=== PATIENT | male | born 1955 | race Caucasian/White ===

== ENCOUNTER 2017-08-28 11:35 | Inpatient (IN) ==
[2017-08-28] MEDS ORDERED: NS 1000 ML 2,000 ML IV ONE (14:08)
[2017-08-28] MEDS ORDERED: PHARMACY CONSULT - TPN XX SCH (14:08)
[2017-08-28 14:31] LABS: BASOPHILS # (AUTO) 0.3 X10^3/uL (0.0-0.1); BASOPHILS % (AUTO) 1.7 % (0.2-1.0); EOSINOPHILS # (AUTO) 0.8 x10^3/uL (0.0-0.2); EOSINOPHILS % (AUTO) 5.2 % (0.9-2.9); HEMATOCRIT 33.6 % (42.0-54.0); HEMOGLOBIN 11.4 g/dL (13.5-18.0); LYMPHOCYTES # (AUTO) 1.9 X10^3/uL (1.3-2.9); LYMPHOCYTES % (AUTO) 11.6 % (21.0-51.0); MEAN CORPUSCULAR HEMOGLOBIN 32.8 pg (27.0-34.0); MEAN CORPUSCULAR VOLUME 96.5 fL (80.0-100.0); MEAN PLATELET VOLUME 8.8 fL (7.4-11.0); MONOCYTES # (AUTO) 1.5 x10^3/uL (0.3-0.8); MONOCYTES % (AUTO) 8.8 % (0.0-13.0); NEUTROPHILS % (AUTO) 72.7 % (42.0-75.0); PLATELET COUNT 351 X10^3/uL (150.0-450.0); RED BLOOD COUNT 3.48 X10^6/uL (4.7-6.0); RED CELL DISTRIBUTION WIDTH 13.2 % (11.6-16.5); WHITE BLOOD COUNT 16.5 X10^3/uL (3.6-10.0)
[2017-08-28 14:41] LABS: ALANINE AMINOTRANSFERASE 48 Units/L (12-78); ALBUMIN 2.9 g/dL (3.4-5.0); ALKALINE PHOSPHATASE 53 Units/L (46-116); ASPARTATE AMINO TRANSFERASE 33 Units/L (15-37); BLOOD UREA NITROGEN 29 mg/dL (7-18); CALCIUM 10.7 mg/dL (8.5-10.1); CARBON DIOXIDE 31.6 mmol/L (21-32); CHLORIDE 100 mmol/L (98-107); COR CA(FOR HYPOALB) 11.6 mg/dL (8.5-10.1); COR NA(FOR HYPERGLY) 139 mmol/L (136-145); CREATININE 0.97 mg/dL (0.70-1.30); SODIUM 139 mmol/L (136-145); TOTAL PROTEIN 7.5 g/dL (6.4-8.2); eGFR NON BLACK RACES > 60 (>60)
[2017-08-28] MEDS: ALBUMIN HUMAN 25%- 100 ML 100 ML IV SCH (15:10)
[2017-08-28] MEDS: NS 1000 ML 1,000 ML IV SCH (15:13)
[2017-08-28 15:33] LABS: BILIRUBIN,URINE NEGATIVE (NEGATIVE); BLOOD/HEMOGLOBIN,URINE 1+ (NEGATIVE); GLUCOSE, URINE NEGATIVE (NEGATIVE); KETONES,URINE NEGATIVE (NEGATIVE); LEUKOCYTE ESTERASE ,URINE 1+ (NEGATIVE); NITRITES,URINE NEGATIVE (NEGATIVE); PROTEIN,URINE 2+ (NEGATIVE); UROBILINOGEN,URINE NORMAL (NORMAL)
[2017-08-28 15:34] LABS: APPEARANCE,URINE HAZY (CLEAR); COLOR,URINE YELLOW (YELLOW)
--- NOTE | 2017-08-28 15:39 | RAD ---
History: Peg tube placement Study: KUB after instillation of 30 mL Gastrografin through the PEG tube Findings: There is opacification of stomach and duodenum and proximal jejunum without extravasation. The PEG tube is in the body of the stomach. Impression: Appropriate position of PEG tube Reported By:
[2017-08-28 15:45] LABS: BACTERIA,URINE TRACE /HPF (NEGATIVE); MUCUS,URINE FEW /HPF (NEGATIVE); SQUAMOUS EPITHELIAL CELL,UR RARE /HPF (NEGATIVE)
[2017-08-28] MEDS ORDERED: HYDROGEN PEROXIDE 3% ONE (15:48)
[2017-08-28] MEDS: MORPHINE SULFATE INJ 2 MG INJ IVP PRN ×2 (15:50→20:21)
[2017-08-28] MEDS: CLINIMIX 4.25 %/10 % 1,000 ML with MVI INJ (ADULT) 10 ML, TRACE ELEMENTS INJ 10 ML, DRU... IV SCH ×3 (16:43)
[2017-08-28] MEDS: ATIVAN INJ 2 MG VIAL IVP SCH ×2 (17:38→20:14)
[2017-08-28] MEDS: ROCEPHIN VIAL 1 GRAM 1 G in NS 100 ML IV + SPIKE MINIBAG* 100 ML IV SCH (18:19)
[2017-08-29] MEDS: ATIVAN INJ 2 MG VIAL IVP SCH ×3 (00:23→07:34)
[2017-08-29] MEDS: MORPHINE SULFATE INJ 2 MG INJ IVP PRN ×7 (02:11→22:37)
[2017-08-29] MEDS: CLINIMIX 4.25 %/10 % 1,000 ML with MVI INJ (ADULT) 10 ML, TRACE ELEMENTS INJ 10 ML, DRU... IV SCH ×9 (05:26→18:10)
[2017-08-29 06:56] LABS: BASOPHILS # (AUTO) 0.1 X10^3/uL (0.0-0.1); BASOPHILS % (AUTO) 0.8 % (0.2-1.0); EOSINOPHILS # (AUTO) 0.8 x10^3/uL (0.0-0.2); EOSINOPHILS % (AUTO) 5.6 % (0.9-2.9); HEMATOCRIT 31.6 % (42.0-54.0); HEMOGLOBIN 10.7 g/dL (13.5-18.0); LYMPHOCYTES # (AUTO) 1.7 X10^3/uL (1.3-2.9); MEAN CORPUSCULAR HEMOGLOBIN 32.8 pg (27.0-34.0); MEAN CORPUSCULAR HGB CONC 33.8 g/dL (33.0-35.0); MEAN CORPUSCULAR VOLUME 97.1 fL (80.0-100.0); MEAN PLATELET VOLUME 10.4 fL (7.4-11.0); MONOCYTES # (AUTO) 1.6 x10^3/uL (0.3-0.8); MONOCYTES % (AUTO) 11.6 % (0.0-13.0); NEUTROPHILS # (AUTO) 9.7 x10^3/uL (2.2-4.8); PLATELET COUNT 286 X10^3/uL (150.0-450.0); RED BLOOD COUNT 3.25 X10^6/uL (4.7-6.0); RED CELL DISTRIBUTION WIDTH 12.9 % (11.6-16.5); WHITE BLOOD COUNT 13.9 X10^3/uL (3.6-10.0)
[2017-08-29 07:11] LABS: PREALBUMIN 16.1 mg/dL (18-35.7)
[2017-08-29 08:24] LABS: ALANINE AMINOTRANSFERASE 59 Units/L (12-78); ALBUMIN 3.1 g/dL (3.4-5.0); ALKALINE PHOSPHATASE 53 Units/L (46-116); ASPARTATE AMINO TRANSFERASE 49 Units/L (15-37); BLOOD UREA NITROGEN 21 mg/dL (7-18); CARBON DIOXIDE 25.1 mmol/L (21-32); CHLORIDE 102 mmol/L (98-107); COR CA(FOR HYPOALB) 10.7 mg/dL (8.5-10.1); COR NA(FOR HYPERGLY) 139 mmol/L (136-145); CREATININE 0.71 mg/dL (0.70-1.30); MAGNESIUM 1.6 mg/dL (1.7-2.9); PHOSPHORUS 3.6 mg/dL (2.6-4.7); SODIUM 139 mmol/L (136-145); TOTAL PROTEIN 6.7 g/dL (6.4-8.2); TRIGLYCERIDES 106 mg/dL (0-150); eGFR NON BLACK RACES > 60 (>60)
[2017-08-29] MEDS: ROCEPHIN VIAL 1 GRAM 1 G in NS 100 ML IV + SPIKE MINIBAG* 100 ML IV SCH (09:51)
[2017-08-29] MEDS: ALBUMIN HUMAN 25%- 100 ML 100 ML IV SCH (09:55)
[2017-08-29] MEDS ORDERED: PHARMACY CONSULT - VANCOMYCIN XX SCH (10:00)
[2017-08-29] MEDS: ZOSYN VIAL 3.375 GRAMS 3.375 G in NS 100 ML IV + SPIKE MINIBAG* 100 ML IV SCH ×3 (11:11→21:24)
[2017-08-29] MEDS: ATIVAN INJ 2 MG VIAL IVP PRN ×5 (11:12→22:37)
[2017-08-29] MEDS: NS 1000 ML 1,000 ML IV SCH (14:57)
[2017-08-29] MEDS: VANCOMYCIN HCL 1 GM VIAL 1 G in D5W 250 ML IV 250 ML IV SCH (20:02)
--- NOTE | 2017-08-29 23:00 | DR.UPDATE ---
H&P Update History and Physical Update: WAS SEEN IN THE OFFICE TODAY. A H&P WAS COMPLETED PRIOR TO ADMISSION. PATIENT HAS BEEN SEEN AND EXAMINED WITH NO CHANGES NOTED TO H&P. Changes noted: NO Yes with the following:
[2017-08-30] MEDS: MORPHINE SULFATE INJ 2 MG INJ IVP PRN ×7 (01:00→21:55)
[2017-08-30] MEDS: ATIVAN INJ 2 MG VIAL IVP PRN ×7 (01:14→21:56)
[2017-08-30 05:19] LABS: BASOPHILS # (AUTO) 0.1 X10^3/uL (0.0-0.1); EOSINOPHILS # (AUTO) 0.7 x10^3/uL (0.0-0.2); EOSINOPHILS % (AUTO) 4.6 % (0.9-2.9); HEMATOCRIT 31.9 % (42.0-54.0); HEMOGLOBIN 10.8 g/dL (13.5-18.0); LYMPHOCYTES % (AUTO) 13.2 % (21.0-51.0); MEAN CORPUSCULAR HGB CONC 34.1 g/dL (33.0-35.0); MEAN CORPUSCULAR VOLUME 96.9 fL (80.0-100.0); MEAN PLATELET VOLUME 9.4 fL (7.4-11.0); NEUTROPHILS # (AUTO) 10.3 x10^3/uL (2.2-4.8); NEUTROPHILS % (AUTO) 68.2 % (42.0-75.0); PLATELET COUNT 331 X10^3/uL (150.0-450.0); RED BLOOD COUNT 3.29 X10^6/uL (4.7-6.0); RED CELL DISTRIBUTION WIDTH 12.7 % (11.6-16.5); WHITE BLOOD COUNT 15.1 X10^3/uL (3.6-10.0)
[2017-08-30] MEDS: ZOSYN VIAL 3.375 GRAMS 3.375 G in NS 100 ML IV + SPIKE MINIBAG* 100 ML IV SCH ×3 (05:23→21:55)
[2017-08-30 05:29] LABS: ALANINE AMINOTRANSFERASE 57 Units/L (12-78); ALBUMIN 3.2 g/dL (3.4-5.0); ALKALINE PHOSPHATASE 50 Units/L (46-116); ASPARTATE AMINO TRANSFERASE 29 Units/L (15-37); BLOOD UREA NITROGEN 13 mg/dL (7-18); CALCIUM 10.2 mg/dL (8.5-10.1); CARBON DIOXIDE 25.5 mmol/L (21-32); CHLORIDE 102 mmol/L (98-107); COR CA(FOR HYPOALB) 10.8 mg/dL (8.5-10.1); CREATININE 0.68 mg/dL (0.70-1.30); MAGNESIUM 1.5 mg/dL (1.7-2.9); PHOSPHORUS 3.6 mg/dL (2.6-4.7); SODIUM 138 mmol/L (136-145); TOTAL PROTEIN 7.3 g/dL (6.4-8.2); TRIGLYCERIDES 103 mg/dL (0-150); eGFR NON BLACK RACES > 60 (>60)
[2017-08-30 06:51] LABS: PREALBUMIN 17.3 mg/dL (18-35.7)
[2017-08-30] MEDS: ALBUMIN HUMAN 25%- 100 ML 100 ML IV SCH (09:36)
[2017-08-30] MEDS: VANCOMYCIN HCL 1 GM VIAL 1 G in D5W 250 ML IV 250 ML IV SCH ×2 (09:41→21:54)
[2017-08-30 12:09] VITALS: BMI 16.0
[2017-08-30] MEDS ORDERED: DRUG FILTER EXTENSION SET ONE (12:48)
[2017-08-30] MEDS: CLINIMIX 4.25 %/10 % 1,000 ML with MVI INJ (ADULT) 10 ML, TRACE ELEMENTS INJ 10 ML, DRU... IV SCH ×3 (13:06)
--- NOTE | 2017-08-30 13:20 | PCM.PROG ---
Progress Note - Progress Note for Day of Date of Exam: 08/29/17 - Subjective Subjective: WAS ADMITTED FOR DEHYDRATION, GENERALIZED WEAKNESS, AND DRAINAGE FROM G-TUBE AND TRACH. HE WAS RECENTLY DIAGNOSED WITH THROAT CANCER LAST MONTH. TRACH WAS PLACED ON 08/05/2017. G-TUBE WAS PLACED ON 08/10/2017. TODAY , HE IS ALERT AND ORIENTED, LYING IN BED ON MORNING ROUNDS. HE CONTINUES WITH COMPLAINTS OF GENERALIZED WEAKNESS, NAUSEA, AND PAIN TO AREA OF G-TUBE. STAFF REPORTS THAT PATIENT HAS BEEN ANXIOUS AND HAS GOTTEN UPSET OFTEN ABOUT HIS DISEASE PROCESS. ON EXAMINATION, HEART IS REGULAR IN RATE AND RHYTHM. BILATERAL LUNGS ARE NOTED WITH DIMINISHED LUNG SOUNDS THROUGHOUT. ABDOMEN IS FLAT, SOFT, AND NOTED WITH MODERATE TENDERNESS TO LEFT SIDE ABDOMEN AROUND G-TUBE. THERE IS DRAINAGE NOTED TO SITE OF G-TUBE WELL FROM ET TUBE. HIS VITALS THIS MORNING WERE 99.8-68-18-97%-106/53. LABS WERE OBTAINED. ABNORMAL LAB VALUES INCLUDE THE FOLLOWING: WBC 13.9, RBC 3.25, HGB 10.7, HCT 31.6, BUN 21, GLUCOSE 115, MAGNESIUM 1.6, AST 49, ALBUMIN 3.1. WOUND CULTURES ARE PENDING. TODAY, WE WILL START FORTAZ IV AND ZOSYN IV. WE WILL ALSO CONTINUE WITH MORPHINE FOR PAIN AND ATIVAN FOR AGITATION. OTHERWISE, WE PLAN TO FOLLOW UP WITH AM LABS AND CONTINUE TO MONITOR PATIENT. - Past Medical Family Social History Past Med/Fam/Surg Hx: No changes since H&P Allergies: Allergies No Known Drug Allergies Allergy (Verified 08/28/17 14:36) - Review of Systems ROS: No change since H&P - Vital Signs and I&O's Vital Signs: Temperature 97.5 F Pulse Rate [Left Brachial] 66 Pulse Rate [Apical] 62 Pulse Rate 64 Respiratory Rate 20 Blood Pressure [Left Arm] 113/52 Blood Pressure [Right Arm] 124/66 O2 Sat by Pulse Oximetry 97 Intake and Output: Intake & Output 08/28/17 08/29/17 08/30/17 08/31/17 11:59 11:59 11:59 11:59 Intake Total 1905 / 1905 2380 / 2380 Balance 190 / 1905 2380 / 2380 - Physical Exam Oriented: Normal Eyes: Normal Ear: Normal Nose: Normal Throat: Other (TRACH WITH DRAINAGE AROUND SITE ) Respiratory: Generalized, Diminished Cardiovascular: Normal. negative: S3, S4, Murmur : Normal Auscultation: Bowel Sounds: Decreased Palpation: Normal Tenderness: Diffuse, Moderate, Guarding. negative: Rebound, Rigidity Skin: Red (LEFT SIDE ABDOMEN AROUND G TUBE SITE ), Tender, Hot Musculoskeletal: Normal Psychiatric: Normal Mood Description: Calm Affect: Normal Speech Pattern: Unclear, Trach(not ventilated) - Laboratory and Diagnostics Result Diagrams: 08/30/17 04:50 08/30/17 04:50 Labs: 08/28/17 15:19 Trachea Gram Stain - Final 08/28/17 15:19 Trachea Wound Culture - Preliminary 08/28/17 15:19 G Tube Gram Stain - Final 08/28/17 15:19 G Tube Wound Culture - Preliminary Laboratory WBC 15.1 X10^3/uL (3.6-10.0) H 08/30/17 04:50 RBC 3.29 X10^6/uL (4.7-6.0) L 08/30/17 04:50 Hgb 10.8 g/dL (13.5-18.0) L 08/30/17 04:50 Hct 31.9 % (42.0-54.0) L 08/30/17 04:50 MCV 96.9 fL (80.0-100.0) 08/30/17 04:50 MCH 33.0 pg (27.0-34.0) 08/30/17 04:50 MCHC 34.1 g/dL (33.0-35.0) 08/30/17 04:50 RDW 12.7 % (11.6-16.5) 08/30/17 04:50 Plt Count 331 X10^3/uL (150.0-450.0) 08/30/17 04:50 MPV 9.4 fL (7.4-11.0) 08/30/17 04:50 Neut % (Auto) 68.2 % (42.0-75.0) 08/30/17 04:50 Lymph % (Auto) 13.2 % (21.0-51.0) L 08/30/17 04:50 [place] % (Auto) 13.0 % (0.0-13.0) 08/30/17 04:50 Eos % (Auto) 4.6 % (0.9-2.9) H 08/30/17 04:50 Baso % (Auto) 1.0 % (0.2-1.0) 08/30/17 04:50 Neut # (Auto) 10.3 x10^3/uL (2.2-4.8) H 08/30/17 04:50 Lymph # (Auto) 2.0 X10^3/uL (1.3-2.9) 08/30/17 04:50 [place] # (Auto) 2.0 x10^3/uL (0.3-0.8) H 08/30/17 04:50 Eos # (Auto) 0.7 x10^3/uL (0.0-0.2) H 08/30/17 04:50 Baso # (Auto) 0.1 X10^3/uL (0.0-0.1) 08/30/17 04:50 Absolute Nucleated RBC 0.0 /100WBC 08/30/17 04:50 Sodium 138 mmol/L (136-145) 08/30/17 04:50 Corrected Sodium TNP 08/30/17 04:50 Potassium 3.8 mmol/L (3.5-5.1) 08/30/17 04:50 Chloride 102 mmol/L (98-107) 08/30/17 04:50 Carbon Dioxide 25.5 mmol/L (21-32) 08/30/17 04:50 BUN 13 mg/dL (7-18) 08/30/17 04:50 Creatinine 0.68 mg/dL (0.70-1.30) L 08/30/17 04:50 Est GFR (MDRD) Af Amer > 60 (>60) 08/30/17 04:50 Est GFR (MDRD) Non-Af > 60 (>60) 08/30/17 04:50 Glucose 106 mg/dL (65-99) H 08/30/17 04:50 Calcium 10.2 mg/dL (8.5-10.1) H 08/30/17 04:50 Corrected Calcium 10.8 mg/dL (8.5-10.1) H 08/30/17 04:50 Phosphorus 3.6 mg/dL (2.6-4.7) 08/30/17 04:50 Magnesium 1.5 mg/dL (1.7-2.9) L 08/30/17 04:50 Total Bilirubin 0.50 mg/dL (0.2-1.0) 08/30/17 04:50 AST 29 Units/L (15-37) 08/30/17 04:50 ALT 57 Units/L (12-78) 08/30/17 04:50 Alkaline Phosphatase 50 Units/L (46-116) 08/30/17 04:50 Total Protein 7.3 g/dL (6.4-8.2) 08/30/17 04:50 Albumin 3.2 g/dL (3.4-5.0) L 08/30/17 04:50 Globulin 4.1 g/dL (2.5-4.5) 08/30/17 04:50 Albumin/Globulin Ratio 0.8 Ratio (1.1-2.1) L 08/30/17 04:50 Prealbumin 17.3 mg/dL (18-35.7) L 08/30/17 04:50 Triglycerides 103 mg/dL (0-150) 08/30/17 04:50 Specimen Type Clean catch urine 08/28/17 15:07 Urine Color Yellow (YELLOW) 08/28/17 15:07 Urine Appearance Hazy (CLEAR) 08/28/17 15:07 Urine pH 8.0 (5.0 - 8.0) 08/28/17 15:07 Ur Specific [place] 1.010 (1.000-1.030) 08/28/17 15:07 Urine Protein 2+ (NEGATIVE) 08/28/17 15:07 Urine Glucose (UA) Negative (NEGATIVE) 08/28/17 15:07 Urine Ketones Negative (NEGATIVE) 08/28/17 15:07 Urine Occult Blood 1+ (NEGATIVE) 08/28/17 15:07 Urine Nitrite Negative (NEGATIVE) 08/28/17 15:07 Urine Bilirubin Negative (NEGATIVE) 08/28/17 15:07 Urine Urobilinogen Normal (NORMAL) 08/28/17 15:07 Ur Leukocyte Esterase 1+ (NEGATIVE) 08/28/17 15:07 Urine RBC 3-5 /HPF (NONE SEEN) 08/28/17 15:07 Urine WBC 3-5 /HPF (NONE SEEN) 08/28/17 15:07 Ur Squamous Epith Cells Rare /HPF (NEGATIVE) 08/28/17 15:07 Urine Bacteria Trace /HPF (NEGATIVE) 08/28/17 15:07 Urine Mucus Few /HPF (NEGATIVE) 08/28/17 15:07 Ur Culture Indicated? No/not indicated 08/28/17 15:07 - Plan (1) Dehydration Status: Acute Plan: NORMAL SALINE AT KVO, TPN, ALBUMIN 25% IV DAILY, CONTINUE TO MONITOR (2) Skin infection at gastrostomy tube site Status: Acute Plan: WOUND CULTURES, IV ANTIBIOTICS, CONTINUE TO MONITOR (3) Tracheostomy infection Status: Acute Plan: WOUND CULTURES, IV ANTIBIOTICS, CONTINUE TO MONITOR (4) Abdominal pain Status: Acute Qualifiers: Abdominal location: generalized Qualified Code(s): R10.84 - Generalized abdominal pain Plan: MORPHINE 2-4MG IV Q2-4H PRN, CONTINUE TO MONITOR
[2017-08-30] MEDS: NS 1000 ML 1,000 ML IV SCH (14:12)
[2017-08-30] MEDS ORDERED: HYDROGEN PEROXIDE 3% ONE (15:12)
--- NOTE | 2017-08-30 16:26 | PCM.PROG ---
Progress Note - Progress Note for Day of Date of Exam: 08/30/17 - Subjective Subjective: WAS ADMITTED FOR DEHYDRATION, GENERALIZED WEAKNESS, AND DRAINAGE FROM G-TUBE AND TRACH. HE WAS RECENTLY DIAGNOSED WITH THROAT CANCER LAST MONTH. TRACH WAS PLACED ON 08/05/2017. G-TUBE WAS PLACED ON 08/10/2017. TODAY , HE IS ALERT AND ORIENTED, LYING IN BED ON MORNING ROUNDS. HE CONTINUES WITH COMPLAINTS OF GENERALIZED WEAKNESS AND PAIN TO AREA OF G-TUBE. ON EXAMINATION, HEART IS REGULAR IN RATE AND RHYTHM. BILATERAL LUNGS ARE NOTED WITH DIMINISHED LUNG SOUNDS THROUGHOUT. ABDOMEN IS FLAT, SOFT, AND NOTED WITH MODERATE TENDERNESS TO LEFT SIDE ABDOMEN AROUND G-TUBE. DRESSINGS TO TRACHEOSTOMY AND G TUBE ARE DRY AND INTACT. HIS VITALS THIS MORNING WERE 97.5-66-20-97%-113/52. LABS WERE OBTAINED. ABNORMAL LAB VALUES INCLUDE THE FOLLOWING: WBC 15.1, RBC 3.29, HGB 10.8, HCT 31.9, CREATININE 0.68, GLUCOSE 106, CALCIUM 8.2, MAGNESIUM 1.5, ALBUMIN 3.2. WOUND CULTURES ARE PENDING. HE CONTINUES ON TPN, ALBUMIN, AND IV ANTIBIOTICS. WE WILL CONTINUE WITH CURRENT PLAN OF CARE TODAY AND REPLACE HIS MAGNESIUM PER THE PROTOCOL. OTHERWISE, WE PLAN TO FOLLOW UP WITH AM LABS AND CONTINUE TO MONITOR PATIENT. - Past Medical Family Social History Past Med/Fam/Surg Hx: No changes since H&P Allergies: Allergies No Known Drug Allergies Allergy (Verified 08/28/17 14:36) - Review of Systems ROS: No change since H&P - Vital Signs and I&O's Vital Signs: Temperature 97.5 F Pulse Rate [Left Brachial] 66 Pulse Rate [Apical] 62 Pulse Rate 64 Respiratory Rate 20 Blood Pressure [Left Arm] 113/52 Blood Pressure [Right Arm] 124/66 O2 Sat by Pulse Oximetry 97 Intake and Output: Intake & Output 08/28/17 08/29/17 08/30/17 08/31/17 11:59 11:59 11:59 11:59 Intake Total 1905 / 1905 2380 / 2380 820 / 820 Output Total 150 / 150 Balance 1905 / 1905 2380 / 2380 670 / 670 - Physical Exam Oriented: Normal Eyes: Normal Ear: Normal Nose: Normal Throat: Other (TRACH WITH DRAINAGE AROUND SITE ) Respiratory: Generalized, Diminished Cardiovascular: Normal. negative: S3, S4, Murmur : Normal Auscultation: Bowel Sounds: Decreased Tenderness: Diffuse, Moderate, Guarding. negative: Rebound, Rigidity Skin: Red (LEFT SIDE ABDOMEN AROUND G TUBE SITE ), Tender, Hot Musculoskeletal: Normal Psychiatric: Normal Mood Description: Calm Affect: Normal Speech Pattern: Unclear, Trach(not ventilated) - Laboratory and Diagnostics Result Diagrams: 08/30/17 04:50 08/30/17 04:50 Labs: 08/28/17 15:19 Trachea Gram Stain - Final 08/28/17 15:19 Trachea Wound Culture - Preliminary 08/28/17 15:19 G Tube Gram Stain - Final 08/28/17 15:19 G Tube Wound Culture - Preliminary Laboratory WBC 15.1 X10^3/uL (3.6-10.0) H 08/30/17 04:50 RBC 3.29 X10^6/uL (4.7-6.0) L 08/30/17 04:50 Hgb 10.8 g/dL (13.5-18.0) L 08/30/17 04:50 Hct 31.9 % (42.0-54.0) L 08/30/17 04:50 MCV 96.9 fL (80.0-100.0) 08/30/17 04:50 MCH 33.0 pg (27.0-34.0) 08/30/17 04:50 MCHC 34.1 g/dL (33.0-35.0) 08/30/17 04:50 RDW 12.7 % (11.6-16.5) 08/30/17 04:50 Plt Count 331 X10^3/uL (150.0-450.0) 08/30/17 04:50 MPV 9.4 fL (7.4-11.0) 08/30/17 04:50 Neut % (Auto) 68.2 % (42.0-75.0) 08/30/17 04:50 Lymph % (Auto) 13.2 % (21.0-51.0) L 08/30/17 04:50 [place] % (Auto) 13.0 % (0.0-13.0) 08/30/17 04:50 Eos % (Auto) 4.6 % (0.9-2.9) H 08/30/17 04:50 Baso % (Auto) 1.0 % (0.2-1.0) 08/30/17 04:50 Neut # (Auto) 10.3 x10^3/uL (2.2-4.8) H 08/30/17 04:50 Lymph # (Auto) 2.0 X10^3/uL (1.3-2.9) 08/30/17 04:50 [place] # (Auto) 2.0 x10^3/uL (0.3-0.8) H 08/30/17 04:50 Eos # (Auto) 0.7 x10^3/uL (0.0-0.2) H 08/30/17 04:50 Baso # (Auto) 0.1 X10^3/uL (0.0-0.1) 08/30/17 04:50 Absolute Nucleated RBC 0.0 /100WBC 08/30/17 04:50 Sodium 138 mmol/L (136-145) 08/30/17 04:50 Corrected Sodium TNP 08/30/17 04:50 Potassium 3.8 mmol/L (3.5-5.1) 08/30/17 04:50 Chloride 102 mmol/L (98-107) 08/30/17 04:50 Carbon Dioxide 25.5 mmol/L (21-32) 08/30/17 04:50 BUN 13 mg/dL (7-18) 08/30/17 04:50 Creatinine 0.68 mg/dL (0.70-1.30) L 08/30/17 04:50 Est GFR (MDRD) Af Amer > 60 (>60) 08/30/17 04:50 Est GFR (MDRD) Non-Af > 60 (>60) 08/30/17 04:50 Glucose 106 mg/dL (65-99) H 08/30/17 04:50 Calcium 10.2 mg/dL (8.5-10.1) H 08/30/17 04:50 Corrected Calcium 10.8 mg/dL (8.5-10.1) H 08/30/17 04:50 Phosphorus 3.6 mg/dL (2.6-4.7) 08/30/17 04:50 Magnesium 1.5 mg/dL (1.7-2.9) L 08/30/17 04:50 Total Bilirubin 0.50 mg/dL (0.2-1.0) 08/30/17 04:50 AST 29 Units/L (15-37) 08/30/17 04:50 ALT 57 Units/L (12-78) 08/30/17 04:50 Alkaline Phosphatase 50 Units/L (46-116) 08/30/17 04:50 Total Protein 7.3 g/dL (6.4-8.2) 08/30/17 04:50 Albumin 3.2 g/dL (3.4-5.0) L 08/30/17 04:50 Globulin 4.1 g/dL (2.5-4.5) 08/30/17 04:50 Albumin/Globulin Ratio 0.8 Ratio (1.1-2.1) L 08/30/17 04:50 Prealbumin 17.3 mg/dL (18-35.7) L 08/30/17 04:50 Triglycerides 103 mg/dL (0-150) 08/30/17 04:50 Specimen Type Clean catch urine 08/28/17 15:07 Urine Color Yellow (YELLOW) 08/28/17 15:07 Urine Appearance Hazy (CLEAR) 08/28/17 15:07 Urine pH 8.0 (5.0 - 8.0) 08/28/17 15:07 Ur Specific [place] 1.010 (1.000-1.030) 08/28/17 15:07 Urine Protein 2+ (NEGATIVE) 08/28/17 15:07 Urine Glucose (UA) Negative (NEGATIVE) 08/28/17 15:07 Urine Ketones Negative (NEGATIVE) 08/28/17 15:07 Urine Occult Blood 1+ (NEGATIVE) 08/28/17 15:07 Urine Nitrite Negative (NEGATIVE) 08/28/17 15:07 Urine Bilirubin Negative (NEGATIVE) 08/28/17 15:07 Urine Urobilinogen Normal (NORMAL) 08/28/17 15:07 Ur Leukocyte Esterase 1+ (NEGATIVE) 08/28/17 15:07 Urine RBC 3-5 /HPF (NONE SEEN) 08/28/17 15:07 Urine WBC 3-5 /HPF (NONE SEEN) 08/28/17 15:07 Ur Squamous Epith Cells Rare /HPF (NEGATIVE) 08/28/17 15:07 Urine Bacteria Trace /HPF (NEGATIVE) 08/28/17 15:07 Urine Mucus Few /HPF (NEGATIVE) 08/28/17 15:07 Ur Culture Indicated? No/not indicated 08/28/17 15:07 - Plan (1) Dehydration Status: Acute Plan: NORMAL SALINE AT KVO, TPN, ALBUMIN 25% IV DAILY, CONTINUE TO MONITOR (2) Skin infection at gastrostomy tube site Status: Acute Plan: WOUND CULTURES, IV ANTIBIOTICS, CONTINUE TO MONITOR (3) Tracheostomy infection Status: Acute Plan: WOUND CULTURES, IV ANTIBIOTICS, CONTINUE TO MONITOR (4) Abdominal pain Status: Acute Qualifiers: Abdominal location: generalized Qualified Code(s): R10.84 - Generalized abdominal pain Plan: MORPHINE 2-4MG IV Q2-4H PRN, CONTINUE TO MONITOR
[2017-08-31] MEDS: ZOSYN VIAL 3.375 GRAMS 3.375 G in NS 100 ML IV + SPIKE MINIBAG* 100 ML IV SCH ×3 (05:16→23:00)
[2017-08-31 05:32] LABS: BASOPHILS # (AUTO) 0.1 X10^3/uL (0.0-0.1); EOSINOPHILS # (AUTO) 0.9 x10^3/uL (0.0-0.2); EOSINOPHILS % (AUTO) 7.1 % (0.9-2.9); HEMATOCRIT 31.4 % (42.0-54.0); HEMOGLOBIN 10.7 g/dL (13.5-18.0); LYMPHOCYTES # (AUTO) 2.2 X10^3/uL (1.3-2.9); LYMPHOCYTES % (AUTO) 16.9 % (21.0-51.0); MEAN CORPUSCULAR HEMOGLOBIN 32.7 pg (27.0-34.0); MEAN PLATELET VOLUME 9.7 fL (7.4-11.0); MONOCYTES # (AUTO) 1.5 x10^3/uL (0.3-0.8); MONOCYTES % (AUTO) 11.5 % (0.0-13.0); NEUTROPHILS # (AUTO) 8.1 x10^3/uL (2.2-4.8); NEUTROPHILS % (AUTO) 63.5 % (42.0-75.0); PLATELET COUNT 302 X10^3/uL (150.0-450.0); RED BLOOD COUNT 3.27 X10^6/uL (4.7-6.0); RED CELL DISTRIBUTION WIDTH 12.9 % (11.6-16.5); WHITE BLOOD COUNT 12.8 X10^3/uL (3.6-10.0)
[2017-08-31 05:49] LABS: ALANINE AMINOTRANSFERASE 67 Units/L (12-78); ALBUMIN 3.3 g/dL (3.4-5.0); ALKALINE PHOSPHATASE 53 Units/L (46-116); ASPARTATE AMINO TRANSFERASE 33 Units/L (15-37); BLOOD UREA NITROGEN 14 mg/dL (7-18); CALCIUM 10.3 mg/dL (8.5-10.1); CHLORIDE 102 mmol/L (98-107); COR CA(FOR HYPOALB) 10.9 mg/dL (8.5-10.1); COR NA(FOR HYPERGLY) 137 mmol/L (136-145); MAGNESIUM 1.3 mg/dL (1.7-2.9); PHOSPHORUS 3.2 mg/dL (2.6-4.7); SODIUM 136 mmol/L (136-145); TOTAL PROTEIN 7.1 g/dL (6.4-8.2); TRIGLYCERIDES 76 mg/dL (0-150); eGFR NON BLACK RACES > 60 (>60)
[2017-08-31] MEDS ORDERED: MAGNESIUM SULFATE 1 GRAM/100 mL PREMIX 1 GM/100 ML BAG IV PRN (07:21)
[2017-08-31] MEDS: ATIVAN INJ 2 MG VIAL IVP PRN ×4 (07:55→23:00)
[2017-08-31 08:21] LABS: PREALBUMIN 16.8 mg/dL (18-35.7)
[2017-08-31 09:20] LABS: CREATININE 0.78 mg/dL (0.70-1.30); VANCOMYCIN,TROUGH 17.6 ug/mL (15-20)
[2017-08-31] MEDS: ALBUMIN HUMAN 25%- 100 ML 100 ML IV SCH (10:00)
[2017-08-31] MEDS: NICOTINE PATCH TD SCH (10:00)
[2017-08-31] MEDS: CLINIMIX 4.25 %/10 % 1,000 ML with MVI INJ (ADULT) 10 ML, TRACE ELEMENTS INJ 10 ML, DRU... IV SCH ×10 (10:00→22:23)
[2017-08-31] MEDS ORDERED: DRUG FILTER EXTENSION SET ONE (10:21)
[2017-08-31] MEDS ORDERED: ATIVAN TAB 1 MG ONE (10:25)
[2017-08-31] MEDS: MAGIC MOUTHWASH MT SCH ×4 (10:50→20:25)
[2017-08-31] MEDS: KLONOPIN TAB 1 MG PO SCH ×2 (11:51→20:24)
[2017-08-31] MEDS: VANCOMYCIN HCL 1 GM VIAL 1 G in D5W 250 ML IV 250 ML IV SCH ×2 (11:51→20:25)
[2017-08-31] MEDS: MORPHINE SULFATE INJ 2 MG INJ IVP PRN ×2 (13:09→23:00)
--- NOTE | 2017-08-31 21:06 | PCM.PROG ---
Progress Note - Progress Note for Day of Date of Exam: 08/31/17 - Subjective Subjective: WAS ADMITTED FOR DEHYDRATION, GENERALIZED WEAKNESS, AND DRAINAGE FROM G-TUBE AND TRACH. TODAY, HE IS ALERT AND ORIENTED, LYING IN BED ON MORNING ROUNDS. HE CONTINUES WITH COMPLAINTS OF GENERALIZED WEAKNESS AND PAIN TO AREA OF G-TUBE AND THROAT. REPORTS FEELINGS OF ANXIETY AND WANTING TO SMOKE. ON EXAMINATION, HEART IS REGULAR IN RATE AND RHYTHM. BILATERAL LUNGS ARE NOTED WITH DIMINISHED LUNG SOUNDS THROUGHOUT. ABDOMEN IS FLAT, SOFT, AND NOTED WITH MODERATE TENDERNESS TO LEFT SIDE ABDOMEN AROUND G-TUBE. DRESSINGS TO TRACHEOSTOMY AND G TUBE ARE DRY AND INTACT. HIS VITALS THIS MORNING WERE 96.4-66 -20-97%-137/63. LABS WERE OBTAINED. ABNORMAL LAB VALUES INCLUDE THE FOLLOWING: WBC 12.8, RBC 3.27, HGB 10.7, HCT 31.4, GLUCOSE 141, CALCIUM 10.3, MAGNESIUM 1.3 , ALBUMIN 3.3. WOUND CULTURES ARE PENDING. HE CONTINUES ON TPN, ALBUMIN, AND IV ANTIBIOTICS. TODAY, WE WILL START TUBE FEEDINGS, KLONOPIN 1MG PO BID, A NICOTINE PATCH, AND MAGIC MOUTHWASH QID. WE WILL ALSO REPLACE HIS MAGNESIUM PER THE PROTOCOL. OTHERWISE, WE PLAN TO FOLLOW UP WITH AM LABS AND CONTINUE TO MONITOR PATIENT. - Past Medical Family Social History Past Med/Fam/Surg Hx: No changes since H&P Allergies: Allergies No Known Drug Allergies Allergy (Verified 08/28/17 14:36) - Review of Systems ROS: No change since H&P - Vital Signs and I&O's Vital Signs: Temperature 98.3 F Pulse Rate [Right Brachial] 67 Pulse Rate [Left Brachial] 66 Pulse Rate [Apical] 62 Pulse Rate 64 Respiratory Rate 18 Blood Pressure [Left Arm] 111/56 Blood Pressure [Right Arm] 120/59 O2 Sat by Pulse Oximetry 99 Intake and Output: Intake & Output 08/29/17 08/30/17 08/31/17 09/01/17 11:59 11:59 11:59 11:59 Intake Total 1905 / 1905 2380 / 2380 1450 / 1450 1680 / 1680 Output Total 600 / 600 Balance 1905 / 1905 2380 / 2380 850 / 850 1680 / 1680 - Physical Exam Oriented: Normal Eyes: Normal Ear: Normal Nose: Normal Throat: Other (TRACH WITH DRAINAGE AROUND SITE ) Respiratory: Generalized, Diminished Cardiovascular: Normal. negative: S3, S4, Murmur : Normal Auscultation: Bowel Sounds: Decreased Palpation: Normal Tenderness: Diffuse, Moderate, Guarding. negative: Rebound, Rigidity Skin: Red (LEFT SIDE ABDOMEN AROUND G TUBE SITE ), Tender, Hot Musculoskeletal: Normal Psychiatric: Normal Mood Description: Calm Affect: Normal Speech Pattern: Clear, Appropriate - Laboratory and Diagnostics Result Diagrams: 08/31/17 04:35 08/31/17 08:37 Labs: 08/28/17 15:19 G Tube Gram Stain - Final 08/28/17 15:19 G Tube Wound Culture - Final 08/28/17 15:19 Trachea Gram Stain - Final 08/28/17 15:19 Trachea Wound Culture - Final Laboratory WBC 12.8 X10^3/uL (3.6-10.0) H 08/31/17 04:35 RBC 3.27 X10^6/uL (4.7-6.0) L 08/31/17 04:35 Hgb 10.7 g/dL (13.5-18.0) L 08/31/17 04:35 Hct 31.4 % (42.0-54.0) L 08/31/17 04:35 MCV 96.0 fL (80.0-100.0) 08/31/17 04:35 MCH 32.7 pg (27.0-34.0) 08/31/17 04:35 MCHC 34.0 g/dL (33.0-35.0) 08/31/17 04:35 RDW 12.9 % (11.6-16.5) 08/31/17 04:35 Plt Count 302 X10^3/uL (150.0-450.0) 08/31/17 04:35 MPV 9.7 fL (7.4-11.0) 08/31/17 04:35 Neut % (Auto) 63.5 % (42.0-75.0) 08/31/17 04:35 Lymph % (Auto) 16.9 % (21.0-51.0) L 08/31/17 04:35 [place] % (Auto) 11.5 % (0.0-13.0) 08/31/17 04:35 Eos % (Auto) 7.1 % (0.9-2.9) H 08/31/17 04:35 Baso % (Auto) 1.0 % (0.2-1.0) 08/31/17 04:35 Neut # (Auto) 8.1 x10^3/uL (2.2-4.8) H 08/31/17 04:35 Lymph # (Auto) 2.2 X10^3/uL (1.3-2.9) 08/31/17 04:35 [place] # (Auto) 1.5 x10^3/uL (0.3-0.8) H 08/31/17 04:35 Eos # (Auto) 0.9 x10^3/uL (0.0-0.2) H 08/31/17 04:35 Baso # (Auto) 0.1 X10^3/uL (0.0-0.1) 08/31/17 04:35 Absolute Nucleated RBC 0.1 /100WBC 08/31/17 04:35 Sodium 136 mmol/L (136-145) 08/31/17 04:35 Corrected Sodium 137 mmol/L (136-145) 08/31/17 04:35 Potassium 3.5 mmol/L (3.5-5.1) 08/31/17 04:35 Chloride 102 mmol/L (98-107) 08/31/17 04:35 Carbon Dioxide 24.0 mmol/L (21-32) 08/31/17 04:35 BUN 14 mg/dL (7-18) 08/31/17 04:35 Creatinine 0.78 mg/dL (0.70-1.30) 08/31/17 08:37 Est GFR (MDRD) Af Amer > 60 (>60) 08/31/17 04:35 Est GFR (MDRD) Non-Af > 60 (>60) 08/31/17 04:35 Glucose 141 mg/dL (65-99) H 08/31/17 04:35 Calcium 10.3 mg/dL (8.5-10.1) H 08/31/17 04:35 Corrected Calcium 10.9 mg/dL (8.5-10.1) H 08/31/17 04:35 Phosphorus 3.2 mg/dL (2.6-4.7) 08/31/17 04:35 Magnesium 1.3 mg/dL (1.7-2.9) L 08/31/17 04:35 Total Bilirubin 0.70 mg/dL (0.2-1.0) 08/31/17 04:35 AST 33 Units/L (15-37) 08/31/17 04:35 ALT 67 Units/L (12-78) 08/31/17 04:35 Alkaline Phosphatase 53 Units/L (46-116) 08/31/17 04:35 Total Protein 7.1 g/dL (6.4-8.2) 08/31/17 04:35 Albumin 3.3 g/dL (3.4-5.0) L 08/31/17 04:35 Globulin 3.8 g/dL (2.5-4.5) 08/31/17 04:35 Albumin/Globulin Ratio 0.9 Ratio (1.1-2.1) L 08/31/17 04:35 Prealbumin 16.8 mg/dL (18-35.7) L 08/31/17 04:35 Triglycerides 76 mg/dL (0-150) 08/31/17 04:35 Specimen Type Clean catch urine 08/28/17 15:07 Urine Color Yellow (YELLOW) 08/28/17 15:07 Urine Appearance Hazy (CLEAR) 08/28/17 15:07 Urine pH 8.0 (5.0 - 8.0) 08/28/17 15:07 Ur Specific [place] 1.010 (1.000-1.030) 08/28/17 15:07 Urine Protein 2+ (NEGATIVE) 08/28/17 15:07 Urine Glucose (UA) Negative (NEGATIVE) 08/28/17 15:07 Urine Ketones Negative (NEGATIVE) 08/28/17 15:07 Urine Occult Blood 1+ (NEGATIVE) 08/28/17 15:07 Urine Nitrite Negative (NEGATIVE) 08/28/17 15:07 Urine Bilirubin Negative (NEGATIVE) 08/28/17 15:07 Urine Urobilinogen Normal (NORMAL) 08/28/17 15:07 Ur Leukocyte Esterase 1+ (NEGATIVE) 08/28/17 15:07 Urine RBC 3-5 /HPF (NONE SEEN) 08/28/17 15:07 Urine WBC 3-5 /HPF (NONE SEEN) 08/28/17 15:07 Ur Squamous Epith Cells Rare /HPF (NEGATIVE) 08/28/17 15:07 Urine Bacteria Trace /HPF (NEGATIVE) 08/28/17 15:07 Urine Mucus Few /HPF (NEGATIVE) 08/28/17 15:07 Ur Culture Indicated? No/not indicated 08/28/17 15:07 Vancomycin Trough 17.6 ug/mL (15-20) 08/31/17 08:37 - Plan (1) Dehydration Status: Acute Plan: NORMAL SALINE AT KVO, TPN, ALBUMIN 25% IV DAILY, CONTINUE TO MONITOR (2) Skin infection at gastrostomy tube site Status: Acute Plan: WOUND CULTURES, IV ANTIBIOTICS, CONTINUE TO MONITOR (3) Tracheostomy infection Status: Acute Plan: WOUND CULTURES, IV ANTIBIOTICS, CONTINUE TO MONITOR (4) Abdominal pain Status: Acute Qualifiers: Abdominal location: generalized Qualified Code(s): R10.84 - Generalized abdominal pain Plan: MORPHINE 2-4MG IV Q2-4H PRN, CONTINUE TO MONITOR (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
[2017-09-01] MEDS: ATIVAN INJ 2 MG VIAL IVP PRN ×5 (04:22→20:16)
[2017-09-01 06:11] LABS: BASOPHILS # (AUTO) 0.1 X10^3/uL (0.0-0.1); BASOPHILS % (AUTO) 0.8 % (0.2-1.0); EOSINOPHILS # (AUTO) 1.2 x10^3/uL (0.0-0.2); HEMATOCRIT 31.1 % (42.0-54.0); HEMOGLOBIN 10.6 g/dL (13.5-18.0); LYMPHOCYTES # (AUTO) 2.3 X10^3/uL (1.3-2.9); MEAN CORPUSCULAR HEMOGLOBIN 32.8 pg (27.0-34.0); MEAN CORPUSCULAR VOLUME 96.4 fL (80.0-100.0); MEAN PLATELET VOLUME 9.3 fL (7.4-11.0); MONOCYTES # (AUTO) 1.6 x10^3/uL (0.3-0.8); MONOCYTES % (AUTO) 11.3 % (0.0-13.0); NEUTROPHILS # (AUTO) 9.1 x10^3/uL (2.2-4.8); NEUTROPHILS % (AUTO) 63.9 % (42.0-75.0); PLATELET COUNT 342 X10^3/uL (150.0-450.0); RED BLOOD COUNT 3.23 X10^6/uL (4.7-6.0); RED CELL DISTRIBUTION WIDTH 13.2 % (11.6-16.5); WHITE BLOOD COUNT 14.3 X10^3/uL (3.6-10.0)
[2017-09-01] MEDS: ZOSYN VIAL 3.375 GRAMS 3.375 G in NS 100 ML IV + SPIKE MINIBAG* 100 ML IV SCH ×3 (06:15→23:07)
[2017-09-01 06:32] LABS: PREALBUMIN 17.9 mg/dL (18-35.7)
[2017-09-01 06:44] LABS: ALANINE AMINOTRANSFERASE 63 Units/L (12-78); ALBUMIN 3.5 g/dL (3.4-5.0); ALKALINE PHOSPHATASE 56 Units/L (46-116); ASPARTATE AMINO TRANSFERASE 27 Units/L (15-37); BLOOD UREA NITROGEN 14 mg/dL (7-18); CALCIUM 10.1 mg/dL (8.5-10.1); CARBON DIOXIDE 27.8 mmol/L (21-32); CHLORIDE 102 mmol/L (98-107); COR NA(FOR HYPERGLY) 137 mmol/L (136-145); MAGNESIUM 1.6 mg/dL (1.7-2.9); PHOSPHORUS 3.2 mg/dL (2.6-4.7); SODIUM 137 mmol/L (136-145); TOTAL PROTEIN 7.2 g/dL (6.4-8.2); TRIGLYCERIDES 63 mg/dL (0-150); eGFR NON BLACK RACES > 60 (>60)
[2017-09-01] MEDS: MAGIC MOUTHWASH MT SCH ×4 (07:45→21:22)
[2017-09-01] MEDS ORDERED: LORTAB ELIX 7.5/325 MG (15 ML) PO PRN (08:02)
[2017-09-01] MEDS ORDERED: HYDROGEN PEROXIDE 3% ONE (08:03)
[2017-09-01] MEDS: ALBUMIN HUMAN 25%- 100 ML 100 ML IV SCH (08:10)
[2017-09-01] MEDS: VANCOMYCIN HCL 1 GM VIAL 1 G in D5W 250 ML IV 250 ML IV SCH ×2 (08:10→21:14)
[2017-09-01] MEDS: KLONOPIN TAB 1 MG PO SCH ×3 (08:15→23:06)
[2017-09-01] MEDS: NS 1000 ML 1,000 ML IV SCH (08:25)
[2017-09-01] MEDS: NICOTINE PATCH TD SCH (08:30)
--- NOTE | 2017-09-01 11:02 | CT ---
HISTORY: Nasal congestion Study: CT sinuses without contrast Comparison: None Technique: Axial noncontrast images with coronal and sagittal reformats. Dose reduction procedures we re used with mA/kv adjusted for body size. Findings: The frontal, ethmoid, sphenoid, and maxillary sinuses are clear. 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 The ostiomeatal complexes are patent. There is slight right-sided nasa l septal deviation. The middle ear spaces and mastoid air cells are clear. IMPRESSION: Clear paranasal sinuses Reported By:
[2017-09-01] MEDS: FLONASE NASAL SPRAY ENOSTRIL SCH ×2 (11:57→23:06)
[2017-09-01] MEDS: Atrovent NEB TX 0.02% NEB SCH ×4 (12:00→20:46)
[2017-09-01] MEDS ORDERED: MAALOX or MYLANTA PO PRN (13:09)
--- NOTE | 2017-09-01 13:38 | RAD ---
HISTORY: Shortness of breath. Study: PA and lateral chest. Comparison: None. Findings: Tracheostomy tube and left chest Port-A-Cath appear to be in good position. The cardiac silhouette is unremarkable. No obvious focal consolidation, pleural effusion, or pneumothorax. The bony thorax i s unremarkable. IMPRESSION: No acute cardiopulmonary disease. Reported By:
[2017-09-01] MEDS: MORPHINE SULFATE INJ 2 MG INJ IVP PRN (16:30)
[2017-09-02] MEDS: ATIVAN INJ 2 MG VIAL IVP PRN ×2 (00:11→15:11)
[2017-09-02] MEDS: CLINIMIX 4.25 %/10 % 1,000 ML with MVI INJ (ADULT) 10 ML, TRACE ELEMENTS INJ 10 ML, DRU... IV SCH ×20 (00:54→13:38)
[2017-09-02] MEDS: MORPHINE SULFATE INJ 2 MG INJ IVP PRN ×3 (01:23→15:10)
[2017-09-02] MEDS: KLONOPIN TAB 1 MG PO SCH ×3 (06:40→21:40)
[2017-09-02] MEDS: ZOSYN VIAL 3.375 GRAMS 3.375 G in NS 100 ML IV + SPIKE MINIBAG* 100 ML IV SCH ×3 (06:41→23:03)
[2017-09-02 06:50] LABS: ALANINE AMINOTRANSFERASE 52 Units/L (12-78); ALBUMIN 3.5 g/dL (3.4-5.0); ALKALINE PHOSPHATASE 49 Units/L (46-116); ASPARTATE AMINO TRANSFERASE 22 Units/L (15-37); BLOOD UREA NITROGEN 12 mg/dL (7-18); CALCIUM 10.1 mg/dL (8.5-10.1); CARBON DIOXIDE 28.7 mmol/L (21-32); CHLORIDE 104 mmol/L (98-107); SODIUM 138 mmol/L (136-145); TOTAL PROTEIN 7.1 g/dL (6.4-8.2); eGFR NON BLACK RACES > 60 (>60)
[2017-09-02 06:54] LABS: BASOPHILS # (AUTO) 0.2 X10^3/uL (0.0-0.1); BASOPHILS % (AUTO) 0.9 % (0.2-1.0); EOSINOPHILS # (AUTO) 0.6 x10^3/uL (0.0-0.2); EOSINOPHILS % (AUTO) 3.7 % (0.9-2.9); HEMATOCRIT 28.8 % (42.0-54.0); HEMOGLOBIN 9.9 g/dL (13.5-18.0); LYMPHOCYTES # (AUTO) 2.6 X10^3/uL (1.3-2.9); LYMPHOCYTES % (AUTO) 15.3 % (21.0-51.0); MEAN CORPUSCULAR HEMOGLOBIN 33.3 pg (27.0-34.0); MEAN CORPUSCULAR HGB CONC 34.3 g/dL (33.0-35.0); MEAN PLATELET VOLUME 9.8 fL (7.4-11.0); MONOCYTES # (AUTO) 2.3 x10^3/uL (0.3-0.8); MONOCYTES % (AUTO) 13.7 % (0.0-13.0); NEUTROPHILS # (AUTO) 11.2 x10^3/uL (2.2-4.8); NEUTROPHILS % (AUTO) 66.4 % (42.0-75.0); PLATELET COUNT 340 X10^3/uL (150.0-450.0); RED BLOOD COUNT 2.97 X10^6/uL (4.7-6.0); RED CELL DISTRIBUTION WIDTH 12.9 % (11.6-16.5)
[2017-09-02 07:17] LABS: WHITE BLOOD COUNT 17.9 X10^3/uL (3.6-10.0)
[2017-09-02 07:18] LABS: PLATELET MORPHOLOGY COMMENT NORMAL (NORMAL)
[2017-09-02] MEDS: ATIVAN INJ 2 MG VIAL IVP SCH (08:02)
[2017-09-02] MEDS: Atrovent NEB TX 0.02% NEB SCH ×4 (08:05→21:14)
[2017-09-02] MEDS: FLONASE NASAL SPRAY ENOSTRIL SCH ×2 (09:00→21:00)
[2017-09-02] MEDS: MAGIC MOUTHWASH MT SCH ×4 (10:11→23:03)
[2017-09-02] MEDS: NICOTINE PATCH TD SCH (10:15)
[2017-09-02] MEDS: ALBUMIN HUMAN 25%- 100 ML 100 ML IV SCH (10:18)
[2017-09-02 10:58] LABS: CREATININE 0.88 mg/dL (0.70-1.30); VANCOMYCIN,TROUGH 17.8 ug/mL (15-20)
[2017-09-02] MEDS: VANCOMYCIN HCL 1 GM VIAL 1 G in D5W 250 ML IV 250 ML IV SCH ×2 (11:48→21:00)
[2017-09-02] MEDS: NS 1000 ML 1,000 ML IV SCH ×2 (13:37)
[2017-09-02] MEDS: PULMICORT NEB TX 0.5 MG NEB SCH ×2 (14:02→21:14)
[2017-09-02] MEDS ORDERED: DEXTROSE 10% 1,000 ML IV PRN (16:03)
[2017-09-02] MEDS ORDERED: HumuLIN R SUBCUT PRN (16:03)
--- NOTE | 2017-09-02 21:20 | PCM.PROG ---
Progress Note - Progress Note for Day of Date of Exam: 09/01/17 - Subjective Subjective: WAS ADMITTED FOR DEHYDRATION, GENERALIZED WEAKNESS, AND DRAINAGE FROM G-TUBE AND TRACH. TODAY, HE IS ALERT AND ORIENTED, LYING IN BED ON MORNING ROUNDS. HE CONTINUES WITH COMPLAINTS OF GENERALIZED WEAKNESS, A SORE THROAT, AND NASAL CONGESTION. HE REPORTS THAT PAIN HAS SLIGHTLY IMPROVED. SPOUSE REPORTS THAT HE CONTINUES WITH ANXIETY. ON EXAMINATION, HEART IS REGULAR IN RATE AND RHYTHM. BILATERAL LUNGS ARE NOTED WITH DIMINISHED LUNG SOUNDS THROUGHOUT. ABDOMEN IS FLAT, SOFT, AND NOTED WITH MILD TENDERNESS TO LEFT SIDE ABDOMEN AROUND G-TUBE. DRESSINGS TO TRACHEOSTOMY AND G TUBE ARE DRY AND INTACT. HIS VITALS THIS MORNING WERE 99.1-61-18-99%-133/63. LABS WERE OBTAINED. ABNORMAL LAB VALUES INCLUDE THE FOLLOWING: WBC 14.3, RBC 3.23, HGB 10.6, HCT 31.1, GLUCOSE 118, MAGNESIUM 1.6. WOUND CULTURES REPORT GROWTH OF COAGULALSE NEGATIVE STAPH. HE CONTINUES ON TPN, ALBUMIN, AND IV ANTIBIOTICS. TODAY, WE WILL START ATROVENT NEB TX, FLONASE 2 SPRAYS TO EACH NOSTRIL BID, AND OBTAIN A SINUS CT. WE WILL ALSO REPLACE HIS MAGNESIUM PER THE PROTOCOL. OTHERWISE, WE PLAN TO FOLLOW UP WITH AM LABS AND CONTINUE TO MONITOR PATIENT. - Past Medical Family Social History Past Med/Fam/Surg Hx: No changes since H&P Allergies: Allergies No Known Drug Allergies Allergy (Verified 08/28/17 14:36) - Review of Systems ROS: No change since H&P - Vital Signs and I&O's Vital Signs: Temperature 99.5 F Pulse Rate [Right Brachial] 70 Pulse Rate [Left Brachial] 66 Pulse Rate [Apical] 64 Pulse Rate 71 Respiratory Rate 18 Blood Pressure [Left Arm] 109/55 Blood Pressure [Right Arm] 136/62 O2 Sat by Pulse Oximetry 98 Intake and Output: Intake & Output 08/31/17 09/01/17 09/02/17 09/03/17 11:59 11:59 11:59 11:59 Intake Total 1450 / 1450 1890 / 1890 1939 1598 / 1598 Output Total 600 / 600 1725 / 1725 Balance 850 / 850 165 / 165 1939 1598 / 1598 - Physical Exam Oriented: Normal Eyes: Normal Ear: Normal Nose: Normal Throat: Other (TRACH WITH DRAINAGE AROUND SITE ) Respiratory: Generalized, Diminished Cardiovascular: Normal. negative: S3, S4, Murmur : Normal Auscultation: Bowel Sounds: Decreased Palpation: Normal Tenderness: Diffuse, Moderate, Guarding. negative: Rebound, Rigidity Skin: Red (LEFT SIDE ABDOMEN AROUND G TUBE SITE ), Tender, Hot Musculoskeletal: Normal Psychiatric: Normal Mood Description: Calm Affect: Normal Speech Pattern: Clear, Appropriate - Laboratory and Diagnostics Result Diagrams: 09/02/17 05:17 09/02/17 10:30 Labs: 08/28/17 15:19 G Tube Gram Stain - Final 08/28/17 15:19 G Tube Wound Culture - Final 08/28/17 15:19 Trachea Gram Stain - Final 08/28/17 15:19 Trachea Wound Culture - Final Laboratory WBC 17.9 X10^3/uL (3.6-10.0) H 09/02/17 05:17 RBC 2.97 X10^6/uL (4.7-6.0) L 09/02/17 05:17 Hgb 9.9 g/dL (13.5-18.0) L 09/02/17 05:17 Hct 28.8 % (42.0-54.0) L 09/02/17 05:17 MCV 97.0 fL (80.0-100.0) 09/02/17 05:17 MCH 33.3 pg (27.0-34.0) 09/02/17 05:17 MCHC 34.3 g/dL (33.0-35.0) 09/02/17 05:17 RDW 12.9 % (11.6-16.5) 09/02/17 05:17 Plt Count 340 X10^3/uL (150.0-450.0) 09/02/17 05:17 Plt Count Comment Adequate (ADEQUATE) 09/02/17 05:17 MPV 9.8 fL (7.4-11.0) 09/02/17 05:17 Neut % (Auto) 66.4 % (42.0-75.0) 09/02/17 05:17 Lymph % (Auto) 15.3 % (21.0-51.0) L 09/02/17 05:17 [place] % (Auto) 13.7 % (0.0-13.0) H 09/02/17 05:17 Eos % (Auto) 3.7 % (0.9-2.9) H 09/02/17 05:17 Baso % (Auto) 0.9 % (0.2-1.0) 09/02/17 05:17 Neut # (Auto) 11.2 x10^3/uL (2.2-4.8) H 09/02/17 05:17 Lymph # (Auto) 2.6 X10^3/uL (1.3-2.9) 09/02/17 05:17 [place] # (Auto) 2.3 x10^3/uL (0.3-0.8) H 09/02/17 05:17 Eos # (Auto) 0.6 x10^3/uL (0.0-0.2) H 09/02/17 05:17 Baso # (Auto) 0.2 X10^3/uL (0.0-0.1) H 09/02/17 05:17 Absolute Nucleated RBC 0.1 /100WBC 09/02/17 05:17 Plt Morphology Comment Normal (NORMAL) 09/02/17 05:17 RBC Morphology Normal (NORMAL) 09/02/17 05:17 Sodium 138 mmol/L (136-145) 09/02/17 05:17 Corrected Sodium TNP 09/02/17 05:17 Potassium 3.8 mmol/L (3.5-5.1) 09/02/17 05:17 Chloride 104 mmol/L (98-107) 09/02/17 05:17 Carbon Dioxide 28.7 mmol/L (21-32) 09/02/17 05:17 BUN 12 mg/dL (7-18) 09/02/17 05:17 Creatinine 0.88 mg/dL (0.70-1.30) 09/02/17 10:30 Est GFR (MDRD) Af Amer > 60 (>60) 09/02/17 05:17 Est GFR (MDRD) Non-Af > 60 (>60) 09/02/17 05:17 Glucose 87 mg/dL (65-99) 09/02/17 05:17 POC Glucose (mg/dL) 100 mg/dL (65-99) H 09/02/17 20:00 Calcium 10.1 mg/dL (8.5-10.1) 09/02/17 05:17 Corrected Calcium TNP 09/02/17 05:17 Phosphorus 3.2 mg/dL (2.6-4.7) 09/01/17 05:40 Magnesium 1.6 mg/dL (1.7-2.9) L 09/01/17 05:40 Total Bilirubin 0.40 mg/dL (0.2-1.0) 09/02/17 05:17 AST 22 Units/L (15-37) 09/02/17 05:17 ALT 52 Units/L (12-78) 09/02/17 05:17 Alkaline Phosphatase 49 Units/L (46-116) 09/02/17 05:17 Total Protein 7.1 g/dL (6.4-8.2) 09/02/17 05:17 Albumin 3.5 g/dL (3.4-5.0) 09/02/17 05:17 Globulin 3.6 g/dL (2.5-4.5) 09/02/17 05:17 Albumin/Globulin Ratio 1.0 Ratio (1.1-2.1) L 09/02/17 05:17 Prealbumin 17.9 mg/dL (18-35.7) L 09/01/17 05:40 Triglycerides 63 mg/dL (0-150) 09/01/17 05:40 Specimen Type Clean catch urine 08/28/17 15:07 Urine Color Yellow (YELLOW) 08/28/17 15:07 Urine Appearance Hazy (CLEAR) 08/28/17 15:07 Urine pH 8.0 (5.0 - 8.0) 08/28/17 15:07 Ur Specific [place] 1.010 (1.000-1.030) 08/28/17 15:07 Urine Protein 2+ (NEGATIVE) 08/28/17 15:07 Urine Glucose (UA) Negative (NEGATIVE) 08/28/17 15:07 Urine Ketones Negative (NEGATIVE) 08/28/17 15:07 Urine Occult Blood 1+ (NEGATIVE) 08/28/17 15:07 Urine Nitrite Negative (NEGATIVE) 08/28/17 15:07 Urine Bilirubin Negative (NEGATIVE) 08/28/17 15:07 Urine Urobilinogen Normal (NORMAL) 08/28/17 15:07 Ur Leukocyte Esterase 1+ (NEGATIVE) 08/28/17 15:07 Urine RBC 3-5 /HPF (NONE SEEN) 08/28/17 15:07 Urine WBC 3-5 /HPF (NONE SEEN) 08/28/17 15:07 Ur Squamous Epith Cells Rare /HPF (NEGATIVE) 08/28/17 15:07 Urine Bacteria Trace /HPF (NEGATIVE) 08/28/17 15:07 Urine Mucus Few /HPF (NEGATIVE) 08/28/17 15:07 Ur Culture Indicated? No/not indicated 08/28/17 15:07 Vancomycin Trough 17.8 ug/mL (15-20) 09/02/17 10:30 - Plan (1) Dehydration Status: Acute Plan: NORMAL SALINE AT KVO, TPN, ALBUMIN 25% IV DAILY, CONTINUE TO MONITOR (2) Skin infection at gastrostomy tube site Status: Acute Plan: WOUND CULTURES, IV ANTIBIOTICS, CONTINUE TO MONITOR (3) Tracheostomy infection Status: Acute Plan: WOUND CULTURES, IV ANTIBIOTICS, CONTINUE TO MONITOR (4) Abdominal pain Status: Acute Qualifiers: Abdominal location: generalized Qualified Code(s): R10.84 - Generalized abdominal pain Plan: MORPHINE 2-4MG IV Q2-4H PRN, CONTINUE TO MONITOR (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
[2017-09-02] MEDS: SNACK - Diabetic Appropriate PO SCH (21:39)
[2017-09-03] MEDS: CLINIMIX 4.25 %/10 % 1,000 ML with MVI INJ (ADULT) 10 ML, TRACE ELEMENTS INJ 10 ML, DRU... IV SCH ×10 (03:29→17:30)
[2017-09-03] MEDS: ZOSYN VIAL 3.375 GRAMS 3.375 G in NS 100 ML IV + SPIKE MINIBAG* 100 ML IV SCH ×3 (05:09→21:34)
[2017-09-03] MEDS: KLONOPIN TAB 1 MG PO SCH ×3 (05:18→21:35)
[2017-09-03 06:11] LABS: ALANINE AMINOTRANSFERASE 41 Units/L (12-78); ALBUMIN 3.5 g/dL (3.4-5.0); ALKALINE PHOSPHATASE 38 Units/L (46-116); ASPARTATE AMINO TRANSFERASE 14 Units/L (15-37); BLOOD UREA NITROGEN 15 mg/dL (7-18); CARBON DIOXIDE 28.6 mmol/L (21-32); CHLORIDE 104 mmol/L (98-107); COR NA(FOR HYPERGLY) 139 mmol/L (136-145); MAGNESIUM 1.7 mg/dL (1.7-2.9); PHOSPHORUS 2.8 mg/dL (2.6-4.7); SODIUM 139 mmol/L (136-145); TOTAL PROTEIN 6.9 g/dL (6.4-8.2); TRIGLYCERIDES 35 mg/dL (0-150); eGFR NON BLACK RACES > 60 (>60)
[2017-09-03 06:14] LABS: PREALBUMIN 16.6 mg/dL (18-35.7)
[2017-09-03 06:15] LABS: BASOPHILS # (AUTO) 0.1 X10^3/uL (0.0-0.1); BASOPHILS % (AUTO) 0.7 % (0.2-1.0); EOSINOPHILS # (AUTO) 0.8 x10^3/uL (0.0-0.2); EOSINOPHILS % (AUTO) 5.4 % (0.9-2.9); HEMATOCRIT 28.9 % (42.0-54.0); HEMOGLOBIN 9.9 g/dL (13.5-18.0); LYMPHOCYTES % (AUTO) 13.8 % (21.0-51.0); MEAN CORPUSCULAR HEMOGLOBIN 33.2 pg (27.0-34.0); MEAN CORPUSCULAR HGB CONC 34.3 g/dL (33.0-35.0); MEAN CORPUSCULAR VOLUME 96.7 fL (80.0-100.0); MEAN PLATELET VOLUME 9.5 fL (7.4-11.0); MONOCYTES # (AUTO) 1.9 x10^3/uL (0.3-0.8); MONOCYTES % (AUTO) 13.6 % (0.0-13.0); NEUTROPHILS # (AUTO) 9.4 x10^3/uL (2.2-4.8); NEUTROPHILS % (AUTO) 66.5 % (42.0-75.0); PLATELET COUNT 352 X10^3/uL (150.0-450.0); RED BLOOD COUNT 2.99 X10^6/uL (4.7-6.0); RED CELL DISTRIBUTION WIDTH 12.8 % (11.6-16.5); WHITE BLOOD COUNT 14.2 X10^3/uL (3.6-10.0)
[2017-09-03] MEDS: ALBUMIN HUMAN 25%- 100 ML 100 ML IV SCH (08:48)
[2017-09-03] MEDS: MAGIC MOUTHWASH MT SCH ×4 (08:49→21:32)
[2017-09-03] MEDS: VANCOMYCIN HCL 1 GM VIAL 1 G in D5W 250 ML IV 250 ML IV SCH ×2 (08:50→21:00)
[2017-09-03] MEDS: NICOTINE PATCH TD SCH (08:50)
[2017-09-03] MEDS: ATIVAN INJ 2 MG VIAL IVP SCH (09:05)
[2017-09-03] MEDS: FLONASE NASAL SPRAY ENOSTRIL SCH ×2 (09:15→21:32)
[2017-09-03] MEDS: Atrovent NEB TX 0.02% NEB SCH ×4 (09:50→21:47)
[2017-09-03] MEDS: PULMICORT NEB TX 0.5 MG NEB SCH ×2 (09:50→21:47)
[2017-09-03] MEDS: NS 1000 ML 1,000 ML IV SCH (14:08)
[2017-09-03] MEDS ORDERED: HYDROGEN PEROXIDE 3% ONE (15:26)
--- NOTE | 2017-09-03 20:59 | PCM.PROG ---
Progress Note - Progress Note for Day of Date of Exam: 09/02/17 - Subjective Subjective: WAS ADMITTED FOR DEHYDRATION, GENERALIZED WEAKNESS, AND DRAINAGE FROM G-TUBE AND TRACH. TODAY, HE IS NOTED TO BE CONFUSED. SPOUSE REPORTS THAT HE HAD A BAD NIGHT AND DIDNT SLEEP MUCH. HE REPORTS SHORTNESS OF BREATH. SPOUSE REPORTS THAT HE IS TOLERATING TUBE FEEDINGS WELL. ON EXAMINATION , HEART IS REGULAR IN RATE AND RHYTHM. BILATERAL LUNGS ARE NOTED WITH DIMINISHED LUNG SOUNDS THROUGHOUT. ABDOMEN IS FLAT, SOFT, AND CONTINUES WITH MILD TENDERNESS. DRESSINGS TO TRACHEOSTOMY AND G TUBE ARE DRY AND INTACT. HIS VITALS THIS MORNING WERE 98.6-71-20-96%-134/63. LABS WERE OBTAINED. ABNORMAL LAB VALUES INCLUDE THE FOLLOWING: WBC 17.9, RBC 2.97, HGB 9.9, HCT 28.8. WOUND CULTURES REPORT GROWTH OF COAGULALSE NEGATIVE STAPH. SINUS CT OBTAINED YESTERDAY AND REVEALED: The frontal, ethmoid, sphenoid, and maxillary sinuses are clear. 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 The ostiomeatal complexes are patent. There is slight right-sided nasal septal deviation. The middle ear spaces and mastoid air cells are clear. HE CONTINUES ON TPN, ALBUMIN, AND IV ANTIBIOTICS. TODAY, WE WILL START PULMICORT NEB TX. OTHERWISE, WE WILL CONTINUE WITH CURRENT PLAN OF CARE. WE PLAN TO FOLLOW UP WITH AM LABS AND CONTINUE TO MONITOR PATIENT. - Past Medical Family Social History Past Med/Fam/Surg Hx: No changes since H&P Allergies: Allergies No Known Drug Allergies Allergy (Verified 08/28/17 14:36) - Review of Systems ROS: No change since H&P - Vital Signs and I&O's Vital Signs: Temperature 99.2 F Pulse Rate [Right Brachial] 68 Pulse Rate [Left Brachial] 66 Pulse Rate [Apical] 64 Pulse Rate 88 Respiratory Rate 18 Blood Pressure [Left Arm] 109/55 Blood Pressure [Right Arm] 158/66 O2 Sat by Pulse Oximetry 94 Intake and Output: Intake & Output 09/01/17 09/02/17 09/03/17 09/04/17 11:59 11:59 11:59 11:59 Intake Total 1890 / 1890 1939 2926 / 2926 0 / 0 Output Total 1725 / 1725 Balance 165 / 165 1940 / 1940 2926 / 2926 0 / 0 - Physical Exam Oriented: Normal Eyes: Normal Ear: Normal Nose: Normal Throat: Other (TRACH WITH DRAINAGE AROUND SITE ) Respiratory: Generalized, Diminished Cardiovascular: Normal. negative: S3, S4, Murmur : Normal Auscultation: Bowel Sounds: Decreased Palpation: Normal Tenderness: Diffuse, Moderate, Guarding. negative: Rebound, Rigidity Skin: Red (LEFT SIDE ABDOMEN AROUND G TUBE SITE ), Tender, Hot Musculoskeletal: Normal Psychiatric: Normal Mood Description: Calm Affect: Normal Speech Pattern: Unclear - Laboratory and Diagnostics Result Diagrams: 09/03/17 05:10 09/03/17 05:10 Labs: 08/28/17 15:19 G Tube Gram Stain - Final 08/28/17 15:19 G Tube Wound Culture - Final 08/28/17 15:19 Trachea Gram Stain - Final 08/28/17 15:19 Trachea Wound Culture - Final Laboratory WBC 14.2 X10^3/uL (3.6-10.0) H 09/03/17 05:10 RBC 2.99 X10^6/uL (4.7-6.0) L 09/03/17 05:10 Hgb 9.9 g/dL (13.5-18.0) L 09/03/17 05:10 Hct 28.9 % (42.0-54.0) L 09/03/17 05:10 MCV 96.7 fL (80.0-100.0) 09/03/17 05:10 MCH 33.2 pg (27.0-34.0) 09/03/17 05:10 MCHC 34.3 g/dL (33.0-35.0) 09/03/17 05:10 RDW 12.8 % (11.6-16.5) 09/03/17 05:10 Plt Count 352 X10^3/uL (150.0-450.0) 09/03/17 05:10 Plt Count Comment Adequate (ADEQUATE) 09/02/17 05:17 MPV 9.5 fL (7.4-11.0) 09/03/17 05:10 Neut % (Auto) 66.5 % (42.0-75.0) 09/03/17 05:10 Lymph % (Auto) 13.8 % (21.0-51.0) L 09/03/17 05:10 [place] % (Auto) 13.6 % (0.0-13.0) H 09/03/17 05:10 Eos % (Auto) 5.4 % (0.9-2.9) H 09/03/17 05:10 Baso % (Auto) 0.7 % (0.2-1.0) 09/03/17 05:10 Neut # (Auto) 9.4 x10^3/uL (2.2-4.8) H 09/03/17 05:10 Lymph # (Auto) 2.0 X10^3/uL (1.3-2.9) 09/03/17 05:10 [place] # (Auto) 1.9 x10^3/uL (0.3-0.8) H 09/03/17 05:10 Eos # (Auto) 0.8 x10^3/uL (0.0-0.2) H 09/03/17 05:10 Baso # (Auto) 0.1 X10^3/uL (0.0-0.1) 09/03/17 05:10 Absolute Nucleated RBC 0.0 /100WBC 09/03/17 05:10 Plt Morphology Comment Normal (NORMAL) 09/02/17 05:17 RBC Morphology Normal (NORMAL) 09/02/17 05:17 Sodium 139 mmol/L (136-145) 09/03/17 05:10 Corrected Sodium 139 mmol/L (136-145) 09/03/17 05:10 Potassium 3.7 mmol/L (3.5-5.1) 09/03/17 05:10 Chloride 104 mmol/L (98-107) 09/03/17 05:10 Carbon Dioxide 28.6 mmol/L (21-32) 09/03/17 05:10 BUN 15 mg/dL (7-18) 09/03/17 05:10 Creatinine 0.70 mg/dL (0.70-1.30) 09/03/17 05:10 Est GFR (MDRD) Af Amer > 60 (>60) 09/03/17 05:10 Est GFR (MDRD) Non-Af > 60 (>60) 09/03/17 05:10 Glucose 111 mg/dL (65-99) H 09/03/17 05:10 POC Glucose (mg/dL) 88 mg/dL (65-99) 09/03/17 16:30 Calcium 10.0 mg/dL (8.5-10.1) 09/03/17 05:10 Corrected Calcium TNP 09/03/17 05:10 Phosphorus 2.8 mg/dL (2.6-4.7) 09/03/17 05:10 Magnesium 1.7 mg/dL (1.7-2.9) 09/03/17 05:10 Total Bilirubin 0.40 mg/dL (0.2-1.0) 09/03/17 05:10 AST 14 Units/L (15-37) L 09/03/17 05:10 ALT 41 Units/L (12-78) 09/03/17 05:10 Alkaline Phosphatase 38 Units/L (46-116) L 09/03/17 05:10 Total Protein 6.9 g/dL (6.4-8.2) 09/03/17 05:10 Albumin 3.5 g/dL (3.4-5.0) 09/03/17 05:10 Globulin 3.4 g/dL (2.5-4.5) 09/03/17 05:10 Albumin/Globulin Ratio 1.0 Ratio (1.1-2.1) L 09/03/17 05:10 Prealbumin 16.6 mg/dL (18-35.7) L 09/03/17 05:10 Triglycerides 35 mg/dL (0-150) 09/03/17 05:10 Specimen Type Clean catch urine 08/28/17 15:07 Urine Color Yellow (YELLOW) 08/28/17 15:07 Urine Appearance Hazy (CLEAR) 08/28/17 15:07 Urine pH 8.0 (5.0 - 8.0) 08/28/17 15:07 Ur Specific [place] 1.010 (1.000-1.030) 08/28/17 15:07 Urine Protein 2+ (NEGATIVE) 08/28/17 15:07 Urine Glucose (UA) Negative (NEGATIVE) 08/28/17 15:07 Urine Ketones Negative (NEGATIVE) 08/28/17 15:07 Urine Occult Blood 1+ (NEGATIVE) 08/28/17 15:07 Urine Nitrite Negative (NEGATIVE) 08/28/17 15:07 Urine Bilirubin Negative (NEGATIVE) 08/28/17 15:07 Urine Urobilinogen Normal (NORMAL) 08/28/17 15:07 Ur Leukocyte Esterase 1+ (NEGATIVE) 08/28/17 15:07 Urine RBC 3-5 /HPF (NONE SEEN) 08/28/17 15:07 Urine WBC 3-5 /HPF (NONE SEEN) 08/28/17 15:07 Ur Squamous Epith Cells Rare /HPF (NEGATIVE) 08/28/17 15:07 Urine Bacteria Trace /HPF (NEGATIVE) 08/28/17 15:07 Urine Mucus Few /HPF (NEGATIVE) 08/28/17 15:07 Ur Culture Indicated? No/not indicated 08/28/17 15:07 Vancomycin Trough 17.8 ug/mL (15-20) 09/02/17 10:30 - Plan (1) Dehydration Status: Acute Plan: NORMAL SALINE AT KVO, TPN, ALBUMIN 25% IV DAILY, CONTINUE TO MONITOR (2) Skin infection at gastrostomy tube site Status: Acute Plan: WOUND CULTURES, IV ANTIBIOTICS, CONTINUE TO MONITOR (3) Tracheostomy infection Status: Acute Plan: WOUND CULTURES, IV ANTIBIOTICS, CONTINUE TO MONITOR (4) Abdominal pain Status: Acute Qualifiers: Abdominal location: generalized Qualified Code(s): R10.84 - Generalized abdominal pain Plan: MORPHINE 2-4MG IV Q2-4H PRN, CONTINUE TO MONITOR (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
[2017-09-03] MEDS: SNACK - Diabetic Appropriate PO SCH (21:32)
[2017-09-04] MEDS: KLONOPIN TAB 1 MG PO SCH (05:05)
[2017-09-04 05:29] LABS: BASOPHILS # (AUTO) 0.1 X10^3/uL (0.0-0.1); BASOPHILS % (AUTO) 0.7 % (0.2-1.0); EOSINOPHILS # (AUTO) 0.6 x10^3/uL (0.0-0.2); EOSINOPHILS % (AUTO) 4.1 % (0.9-2.9); HEMATOCRIT 27.9 % (42.0-54.0); HEMOGLOBIN 9.8 g/dL (13.5-18.0); LYMPHOCYTES # (AUTO) 2.3 X10^3/uL (1.3-2.9); LYMPHOCYTES % (AUTO) 16.5 % (21.0-51.0); MEAN CORPUSCULAR HEMOGLOBIN 33.7 pg (27.0-34.0); MEAN CORPUSCULAR VOLUME 96.2 fL (80.0-100.0); MEAN PLATELET VOLUME 8.9 fL (7.4-11.0); MONOCYTES # (AUTO) 1.8 x10^3/uL (0.3-0.8); MONOCYTES % (AUTO) 13.2 % (0.0-13.0); NEUTROPHILS # (AUTO) 9.1 x10^3/uL (2.2-4.8); NEUTROPHILS % (AUTO) 65.5 % (42.0-75.0); PLATELET COUNT 355 X10^3/uL (150.0-450.0); WHITE BLOOD COUNT 13.9 X10^3/uL (3.6-10.0)
[2017-09-04] MEDS: CLINIMIX 4.25 %/10 % 1,000 ML with MVI INJ (ADULT) 10 ML, TRACE ELEMENTS INJ 10 ML, DRU... IV SCH ×5 (05:30)
[2017-09-04] MEDS: ZOSYN VIAL 3.375 GRAMS 3.375 G in NS 100 ML IV + SPIKE MINIBAG* 100 ML IV SCH (05:30)
[2017-09-04 05:49] LABS: ALANINE AMINOTRANSFERASE 42 Units/L (12-78); ALBUMIN 3.5 g/dL (3.4-5.0); ALKALINE PHOSPHATASE 37 Units/L (46-116); ASPARTATE AMINO TRANSFERASE 21 Units/L (15-37); BLOOD UREA NITROGEN 16 mg/dL (7-18); CALCIUM 10.1 mg/dL (8.5-10.1); CARBON DIOXIDE 27.7 mmol/L (21-32); CHLORIDE 103 mmol/L (98-107); CREATININE 0.62 mg/dL (0.70-1.30); SODIUM 138 mmol/L (136-145); TOTAL PROTEIN 6.9 g/dL (6.4-8.2); eGFR NON BLACK RACES > 60 (>60)
[2017-09-04] MEDS: PULMICORT NEB TX 0.5 MG NEB SCH (08:30)
[2017-09-04] MEDS: Atrovent NEB TX 0.02% NEB SCH ×2 (08:30→12:30)
[2017-09-04] MEDS: ATIVAN INJ 2 MG VIAL IVP SCH (10:07)
[2017-09-04] MEDS: FLONASE NASAL SPRAY ENOSTRIL SCH (10:10)
[2017-09-04] MEDS: ALBUMIN HUMAN 25%- 100 ML 100 ML IV SCH (10:13)
[2017-09-04] MEDS: NICOTINE PATCH TD SCH (10:17)
[2017-09-04] MEDS: MAGIC MOUTHWASH MT SCH ×2 (10:18→13:27)
[2017-09-04 10:53] LABS: CREATININE 0.85 mg/dL (0.70-1.30)
[2017-09-04] MEDS: VANCOMYCIN HCL 1 GM VIAL 1 G in D5W 250 ML IV 250 ML IV SCH (11:35)
[2017-09-04 13:26] VITALS: BP 135/63
--- NOTE | 2017-09-14 22:13 | DR.CARTERD ---
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 MARTINEZ PRESENTED TO THE HOSPITAL A DIRECT ADMISSION WITH REPORTS OF ABDOMINAL PAIN. 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 PATIENT STATED HE HAD BEEN HAVING PAIN AT G-TUBE SITE. PATIENT NOTED TO BE MALNOURISHED AND THIN. PATIENT NOTED WITH TENDERNESS TO LEFT LOWER QUADRANT ON PALPATION. PATIENT NOTED WITH HYPERACTIVE BOWEL SOUNDS THROUGHOUT ON AUSCULTATION. PATIENT NOTED WITH DRAINAGE FROM G-TUBE AND TRACH WHICH WAS GREEN AND YELLOW IN COLOR. TRACHEOSTOMY WAS PLACED ON 08/05/17. ON ARRIVAL TO THE HOSPITAL, PATIENT NOTED WITH SHORTNESS OF BREATH AT REST AND ON EXERTION AND UNABLE TO LIE FLAT. PRODUCTIVE COUGH NOTED WITH THICK CREAMY YELLOW, GREEN SPUTUM. ABNORMAL LABS: WBC 16.5, RBC 3.48, HGB 11.4, HCT 33.6, BUN 29, GLUCOSE 112, CALCIUM 10.7, ALBUMIN 2.9. WOUND CULTURES WERE COLLECTED FROM G-TUBE AND TRACH. URINALYSIS WAS ALSO OBTAINED. KUB REPORTED APPROPRIATE POSITION OF PEG TUBE. PATIENT ADMITTED TO THE HOSPITAL FOR INFECTED G-TUBE AND TRACHEOSTOMY TUBE AND STARTED ON IV ANTIBIOTICS. PATIENT STARTED ON TPN FOR PERIPHERAL NUTRITION AND ALBUMIN IV. DAY TWO, MR. MARTINEZ WAS ADMITTED FOR ABDOMINAL PAIN, DEHYDRATION, GENERALIZED WEAKNESS, AND DRAINAGE FROM G-TUBE AND TRACH. HE WAS DIAGNOSED WITH THROAT CANCER IN JULY OF 2017. TRACH WAS PLACED ON 08/05/2017. G-TUBE WAS PLACED ON 08/10. HE WAS ALERT AND ORIENTED, LYING IN BED ON MORNING ROUNDS. HE CONTINUED WITH COMPLAINTS OF GENERALIZED WEAKNESS, NAUSEA, AND PAIN TO AREA OF G-TUBE. STAFF REPORTED THAT PATIENT HAD BEEN ANXIOUS AND HAD GOTTEN UPSET OFTEN ABOUT HIS DISEASE PROCESS. ON EXAMINATION, HEART WAS REGULAR IN RATE AND RHYTHM. BILATERAL LUNGS WERE NOTED WITH DIMINISHED LUNG SOUNDS THROUGHOUT. ABDOMEN WAS FLAT, SOFT, AND NOTED WITH MODERATE TENDERNESS TO LEFT SIDE ABDOMEN AROUND G- TUBE. THERE WAS DRAINAGE NOTED TO SITE OF G-TUBE WELL FROM ET TUBE. HIS VITALS WERE 99.8-68-18-97%-106/53. LABS WERE OBTAINED. ABNORMAL LAB VALUES INCLUDED THE FOLLOWING: WBC 13.9, RBC 3.25, HGB 10.7, HCT 31.6, BUN 21, GLUCOSE 115, MAGNESIUM 1.6, AST 49, ALBUMIN 3.1. WOUND CULTURES WERE PENDING. WE STARTED FORTAZ IV AND ZOSYN IV. WE CONTINUED WITH MORPHINE FOR PAIN AND ATIVAN FOR AGITATION. DAY THREE, HE WAS ALERT AND ORIENTED, LYING IN BED ON MORNING ROUNDS. HE CONTINUED WITH COMPLAINTS OF GENERALIZED WEAKNESS AND PAIN TO AREA OF G-TUBE. ON EXAMINATION, HEART WAS REGULAR IN RATE AND RHYTHM. BILATERAL LUNGS WERE NOTED WITH DIMINISHED LUNG SOUNDS THROUGHOUT. ABDOMEN WAS FLAT, SOFT, AND NOTED WITH MODERATE TENDERNESS TO LEFT SIDE ABDOMEN AROUND G-TUBE. DRESSINGS TO TRACHEOSTOMY AND G TUBE WERE DRY AND INTACT. HIS VITALS WERE 97.5-66-20-97%-113/ 52. LABS WERE OBTAINED. ABNORMAL LAB VALUES INCLUDED THE FOLLOWING: WBC 15.1, RBC 3.29, HGB 10.8, HCT 31.9, CREATININE 0.68, GLUCOSE 106, CALCIUM 8.2, MAGNESIUM 1.5, ALBUMIN 3.2. WOUND CULTURES WERE PENDING. HE CONTINUED ON TPN, ALBUMIN, AND IV ANTIBIOTICS. WE CONTINUED WITH IV ANTIBIOTICS, TPN, ALBUMIN, AND REPLACED HIS MAGNESIUM PER THE PROTOCOL. DAY FOUR, PATIENT WAS ALERT AND ORIENTED, LYING IN BED ON MORNING ROUNDS. HE CONTINUED WITH COMPLAINTS OF GENERALIZED WEAKNESS AND PAIN TO AREA OF G-TUBE AND THROAT. HE REPORTED FEELINGS OF ANXIETY AND WANTING TO SMOKE. ON EXAMINATION , HEART WAS REGULAR IN RATE AND RHYTHM. BILATERAL LUNGS WERE NOTED WITH DIMINISHED LUNG SOUNDS THROUGHOUT. ABDOMEN WAS FLAT, SOFT, AND NOTED WITH MODERATE TENDERNESS TO LEFT SIDE ABDOMEN AROUND G-TUBE. DRESSINGS TO TRACHEOSTOMY AND G TUBE WERE DRY AND INTACT. HIS VITALS WERE 96.4-66-20-97%-137/ 63. LABS WERE OBTAINED. ABNORMAL LAB VALUES INCLUDED THE FOLLOWING: WBC 12.8, RBC 3.27, HGB 10.7, HCT 31.4, GLUCOSE 141, CALCIUM 10.3, MAGNESIUM 1.3, ALBUMIN 3.3. HE CONTINUED ON TPN, ALBUMIN, AND IV ANTIBIOTICS. WE STARTED TUBE FEEDINGS , KLONOPIN 1MG PO BID, A NICOTINE PATCH, AND MAGIC MOUTHWASH QID. WE CONTINUED MAGNESIUM PER THE PROTOCOL. DAY FIVE, HE CONTINUED WITH COMPLAINTS OF GENERALIZED WEAKNESS, A SORE THROAT, AND NASAL CONGESTION. HE REPORTED THAT PAIN HAD SLIGHTLY IMPROVED. SPOUSE REPORTED THAT HE CONTINUED WITH ANXIETY. ON EXAMINATION, HEART WAS REGULAR IN RATE AND RHYTHM. BILATERAL LUNGS WERE NOTED WITH DIMINISHED LUNG SOUNDS THROUGHOUT. ABDOMEN WAS FLAT, SOFT, AND NOTED WITH MILD TENDERNESS TO LEFT SIDE ABDOMEN AROUND G-TUBE. DRESSINGS TO TRACHEOSTOMY AND G TUBE WERE DRY AND INTACT. HIS VITALS WERE 99.1-61-18-99%-133/63. LABS WERE OBTAINED. ABNORMAL LAB VALUES INCLUDED THE FOLLOWING: WBC 14.3, RBC 3.23, HGB 10.6, HCT 31.1, GLUCOSE 118, MAGNESIUM 1.6. WOUND CULTURES REPORTED GROWTH OF COAGULALSE NEGATIVE STAPH. HE CONTINUED ON TPN, ALBUMIN, AND IV ANTIBIOTICS. WE STARTED ATROVENT NEB TX AND FLONASE 2 SPRAYS TO EACH NOSTRIL BID. 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 WE CONTINUED MAGNESIUM PER THE PROTOCOL. DAY SIX AND SEVEN, PATIENT WAS NOTED TO BE CONFUSED. SPOUSE REPORTED THAT HE HAD A BAD NIGHT AND DIDNT SLEEP MUCH. HE REPORTED SHORTNESS OF BREATH. SPOUSE REPORTED THAT HE WAS TOLERATING TUBE FEEDINGS WELL. ON EXAMINATION, HEART WAS REGULAR IN RATE AND RHYTHM. BILATERAL LUNGS WERE NOTED WITH DIMINISHED LUNG SOUNDS THROUGHOUT. ABDOMEN IS FLAT, SOFT, AND CONTINUES WITH MILD TENDERNESS. DRESSINGS TO TRACHEOSTOMY AND G TUBE ARE DRY AND INTACT. HIS VITALS WERE 98.6-71 -20-96%-134/63. LABS WERE OBTAINED. ABNORMAL LAB VALUES INCLUDED THE FOLLOWING: WBC 17.9, RBC 2.97, HGB 9.9, HCT 28.8. WOUND CULTURES REPORTED GROWTH OF COAGULALSE NEGATIVE STAPH. HE CONTINUED ON TPN, ALBUMIN, AND IV ANTIBIOTICS. WE STARTED PULMICORT NEB TX. DAY EIGHT, PATIENT WAS ALERT AND ORIENTED. PATIENT REPORTED HE WAS FEELING BETTER. PATIENT CONTINUED TO TOLERATE TUBE FEEDINGS WELL. HE DENIED SHORTNESS OF BREATH. NO ACUTE DISTRESS WAS NOTED. VITAL SIGNS STABLE. LABS WNL. WE PLANNED FOR DISCHARGE. INSTRUCTIONS FOR MEDICATIONS AND FOLLOW UP WERE DISCUSSED WITH PATIENT AND FAMILY, BOTH VOICED UNDERSTANDING. PATIENT DISCHARGED HOME IN STABLE CONDITION WITH FAMILY. - Discharge Medications Discharge Medications: Home Medication List clonazepam 1 mg PO TID 08/28/17 [History] hydrocodone-acetaminophen 1 tab PO Q4-6H PRN 08/28/17 [History] morphine 15 mg PO BID 08/28/17 [History] budesonide 1 ea NEB BID #50 ml 09/04/17 [Rx] cefdinir 300 mg PO BID #20 cap 09/04/17 [Rx] fluticasone 2 spr ENOSTRIL BID #1 g 09/04/17 [Rx] ipratropium bromide 0.125 mg INHALATION TID PRN #50 ml 09/04/17 [Rx] Prescriptions: budesonide [facility] [place] cefdinir [facility] [place] fluticasone [facility] [place] ipratropium bromide [facility] [place] - Discharge Disposition Discharge Disposition: PATIENT IS TO FOLLOW UP IN OUR OFFICE IN ONE WEEK.
--- NOTE | 2017-10-15 21:16 | PCM.PROG ---
Progress Note - Progress Note for Day of Date of Exam: 09/03/17 - Subjective Subjective: WAS ADMITTED FOR DEHYDRATION, GENERALIZED WEAKNESS, AND DRAINAGE FROM G-TUBE AND TRACH. TODAY, HE CONTINUES WITH CONFUSION AND SHORTNESS OF BREATH. SPOUSE REPORTS THAT HE IS TOLERATING TUBE FEEDINGS WELL. ON EXAMINATION, HEART IS REGULAR IN RATE AND RHYTHM. BILATERAL LUNGS ARE NOTED WITH DIMINISHED LUNG SOUNDS THROUGHOUT. ABDOMEN IS FLAT, SOFT, AND CONTINUES WITH MILD TENDERNESS. DRESSINGS TO TRACHEOSTOMY AND G TUBE ARE DRY AND INTACT. HIS VITALS THIS MORNING WERE 98.4-76-20-99%-123/59. LABS WERE OBTAINED. ABNORMAL LAB VALUES INCLUDE THE FOLLOWING: WBC 14.2, RBC 2.99, HGB 9.9, HCT 28.9 , GLUCOSE 111, AST 14, ALK PHOS 38, PREALBUMIN 16.6. HE CONTINUES ON TPN, ALBUMIN, AND IV ANTIBIOTICS, AND RESPIRATORY TREATMENTS. OTHERWISE, WE WILL CONTINUE WITH CURRENT PLAN OF CARE. WE PLAN TO FOLLOW UP WITH AM LABS AND CONTINUE TO MONITOR PATIENT. - Past Medical Family Social History Past Med/Fam/Surg Hx: No changes since H&P Allergies: Allergies No Known Drug Allergies Allergy (Verified 08/28/17 14:36) - Review of Systems ROS: No change since H&P - Vital Signs and I&O's Vital Signs: Temperature 98.6 F Pulse Rate [Right Brachial] 68 Pulse Rate [Left Brachial] 66 Pulse Rate [Apical] 64 Pulse Rate 79 Respiratory Rate 18 Blood Pressure [Left Arm] 109/55 Blood Pressure [Right Arm] 135/63 O2 Sat by Pulse Oximetry 100 - Physical Exam Oriented: Normal Eyes: Normal Ear: Normal Nose: Normal Throat: Other (TRACH WITH DRAINAGE AROUND SITE ) Respiratory: Generalized, Diminished Cardiovascular: Normal. negative: S3, S4, Murmur : Normal Auscultation: Bowel Sounds: Decreased Palpation: Normal Tenderness: Diffuse, Moderate, Guarding. negative: Rebound, Rigidity Skin: Red (LEFT SIDE ABDOMEN AROUND G TUBE SITE ), Tender, Hot Musculoskeletal: Normal Psychiatric: Normal Mood Description: Calm Affect: Normal Speech Pattern: Unclear - Laboratory and Diagnostics Result Diagrams: 09/04/17 04:45 09/04/17 10:27 Labs: 08/28/17 15:19 G Tube Gram Stain - Final 08/28/17 15:19 G Tube Wound Culture - Final 08/28/17 15:19 Trachea Gram Stain - Final 08/28/17 15:19 Trachea Wound Culture - Final Laboratory WBC 13.9 X10^3/uL (3.6-10.0) H 09/04/17 04:45 RBC 2.90 X10^6/uL (4.7-6.0) L 09/04/17 04:45 Hgb 9.8 g/dL (13.5-18.0) L 09/04/17 04:45 Hct 27.9 % (42.0-54.0) L 09/04/17 04:45 MCV 96.2 fL (80.0-100.0) 09/04/17 04:45 MCH 33.7 pg (27.0-34.0) 09/04/17 04:45 MCHC 35.0 g/dL (33.0-35.0) 09/04/17 04:45 RDW 13.0 % (11.6-16.5) 09/04/17 04:45 Plt Count 355 X10^3/uL (150.0-450.0) 09/04/17 04:45 Plt Count Comment Adequate (ADEQUATE) 09/02/17 05:17 MPV 8.9 fL (7.4-11.0) 09/04/17 04:45 Neut % (Auto) 65.5 % (42.0-75.0) 09/04/17 04:45 Lymph % (Auto) 16.5 % (21.0-51.0) L 09/04/17 04:45 [place] % (Auto) 13.2 % (0.0-13.0) H 09/04/17 04:45 Eos % (Auto) 4.1 % (0.9-2.9) H 09/04/17 04:45 Baso % (Auto) 0.7 % (0.2-1.0) 09/04/17 04:45 Neut # (Auto) 9.1 x10^3/uL (2.2-4.8) H 09/04/17 04:45 Lymph # (Auto) 2.3 X10^3/uL (1.3-2.9) 09/04/17 04:45 [place] # (Auto) 1.8 x10^3/uL (0.3-0.8) H 09/04/17 04:45 Eos # (Auto) 0.6 x10^3/uL (0.0-0.2) H 09/04/17 04:45 Baso # (Auto) 0.1 X10^3/uL (0.0-0.1) 09/04/17 04:45 Absolute Nucleated RBC 0.0 /100WBC 09/04/17 04:45 Plt Morphology Comment Normal (NORMAL) 09/02/17 05:17 RBC Morphology Normal (NORMAL) 09/02/17 05:17 Sodium 138 mmol/L (136-145) 09/04/17 04:45 Corrected Sodium TNP 09/04/17 04:45 Potassium 3.7 mmol/L (3.5-5.1) 09/04/17 04:45 Chloride 103 mmol/L (98-107) 09/04/17 04:45 Carbon Dioxide 27.7 mmol/L (21-32) 09/04/17 04:45 BUN 16 mg/dL (7-18) 09/04/17 04:45 Creatinine 0.85 mg/dL (0.70-1.30) 09/04/17 10:27 Est GFR (MDRD) Af Amer > 60 (>60) 09/04/17 04:45 Est GFR (MDRD) Non-Af > 60 (>60) 09/04/17 04:45 Glucose 106 mg/dL (65-99) H 09/04/17 04:45 POC Glucose (mg/dL) 92 mg/dL (65-99) 09/04/17 08:10 Calcium 10.1 mg/dL (8.5-10.1) 09/04/17 04:45 Corrected Calcium TNP 09/04/17 04:45 Phosphorus 2.8 mg/dL (2.6-4.7) 09/03/17 05:10 Magnesium 1.7 mg/dL (1.7-2.9) 09/03/17 05:10 Total Bilirubin 0.40 mg/dL (0.2-1.0) 09/04/17 04:45 AST 21 Units/L (15-37) 09/04/17 04:45 ALT 42 Units/L (12-78) 09/04/17 04:45 Alkaline Phosphatase 37 Units/L (46-116) L 09/04/17 04:45 Total Protein 6.9 g/dL (6.4-8.2) 09/04/17 04:45 Albumin 3.5 g/dL (3.4-5.0) 09/04/17 04:45 Globulin 3.4 g/dL (2.5-4.5) 09/04/17 04:45 Albumin/Globulin Ratio 1.0 Ratio (1.1-2.1) L 09/04/17 04:45 Prealbumin 16.6 mg/dL (18-35.7) L 09/03/17 05:10 Triglycerides 35 mg/dL (0-150) 09/03/17 05:10 Specimen Type Clean catch urine 08/28/17 15:07 Urine Color Yellow (YELLOW) 08/28/17 15:07 Urine Appearance Hazy (CLEAR) 08/28/17 15:07 Urine pH 8.0 (5.0 - 8.0) 08/28/17 15:07 Ur Specific [place] 1.010 (1.000-1.030) 08/28/17 15:07 Urine Protein 2+ (NEGATIVE) 08/28/17 15:07 Urine Glucose (UA) Negative (NEGATIVE) 08/28/17 15:07 Urine Ketones Negative (NEGATIVE) 08/28/17 15:07 Urine Occult Blood 1+ (NEGATIVE) 08/28/17 15:07 Urine Nitrite Negative (NEGATIVE) 08/28/17 15:07 Urine Bilirubin Negative (NEGATIVE) 08/28/17 15:07 Urine Urobilinogen Normal (NORMAL) 08/28/17 15:07 Ur Leukocyte Esterase 1+ (NEGATIVE) 08/28/17 15:07 Urine RBC 3-5 /HPF (NONE SEEN) 08/28/17 15:07 Urine WBC 3-5 /HPF (NONE SEEN) 08/28/17 15:07 Ur Squamous Epith Cells Rare /HPF (NEGATIVE) 08/28/17 15:07 Urine Bacteria Trace /HPF (NEGATIVE) 08/28/17 15:07 Urine Mucus Few /HPF (NEGATIVE) 08/28/17 15:07 Ur Culture Indicated? No/not indicated 08/28/17 15:07 Vancomycin Trough 10.0 ug/mL (15-20) L 09/04/17 10:27 - Plan (1) Dehydration Status: Acute Plan: NORMAL SALINE AT KVO, TPN, ALBUMIN 25% IV DAILY, CONTINUE TO MONITOR (2) Skin infection at gastrostomy tube site Status: Acute Plan: WOUND CULTURES, IV ANTIBIOTICS, CONTINUE TO MONITOR (3) Tracheostomy infection Status: Acute Plan: WOUND CULTURES, IV ANTIBIOTICS, CONTINUE TO MONITOR (4) Abdominal pain Status: Acute Qualifiers: Abdominal location: generalized Qualified Code(s): R10.84 - Generalized abdominal pain Plan: MORPHINE 2-4MG IV Q2-4H PRN, CONTINUE TO MONITOR (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
== END 2017-09-04 13:30 | disposition home health service (06) | DRG 394 ==
LOC: MED/SURG
PROVIDERS: ADMIT Internal Medicine; ATTEND Internal Medicine
DX: K21.9 Gastro-esophageal reflux disease without esophagitis; J95.02 Infection of tracheostomy stoma; R11.2 Nausea with vomiting, unspecified; R13.11 Dysphagia, oral phase; R53.1 Weakness; K94.22 Gastrostomy infection; E86.0 Dehydration; R10.84 Generalized abdominal pain; R26.89 Other abnormalities of gait and mobility; I10 Essential (primary) hypertension; C10.8 Malignant neoplasm of overlapping sites of oropharynx; R19.7 Diarrhea, unspecified; F10.11 Alcohol abuse, in remission
CPT/HCPCS: 36415; 70486; 71020; 71046; 74000; 74018; 80053; 80202; 81001; 82565; 83735; 84100; 84134; 84478; 85025; 87070; 87205; 92507; 92523; 92526; 92610; 94640; 97110; 97116; 97163; 97167; 97535; A4216; A4222; B4189; P9047; G0378; J0696; J1642; J2060; J2270; J2543; J3370; J3475; J3480; J7030; J7050; J7060; J7626; J7644

== ENCOUNTER 2017-09-17 21:42 | Inpatient (IN) ==
[2017-09-17] MEDS ORDERED: PHARMACY CONSULT - VANCOMYCIN XX SCH (22:40)
[2017-09-17] MEDS ORDERED: PHARMACY CONSULT - DOSE _____ XX SCH (22:40)
[2017-09-17 23:47] LABS: BASOPHILS # (AUTO) 0.2 X10^3/uL (0.0-0.1); BASOPHILS % (AUTO) 0.9 % (0.2-1.0); EOSINOPHILS # (AUTO) 0.6 x10^3/uL (0.0-0.2); HEMOGLOBIN 10.9 g/dL (13.5-18.0); NEUTROPHILS # (AUTO) 18.1 x10^3/uL (2.2-4.8)
[2017-09-17] MEDS: NS 1000 ML 1,000 ML IV SCH (23:47)
[2017-09-17 23:51] LABS: EOSINOPHILS % (AUTO) 2.7 % (0.9-2.9); HEMATOCRIT 32.5 % (42.0-54.0); LYMPHOCYTES # (AUTO) 1.7 X10^3/uL (1.3-2.9); LYMPHOCYTES % (AUTO) 7.5 % (21.0-51.0); MEAN CORPUSCULAR HEMOGLOBIN 31.8 pg (27.0-34.0); MEAN CORPUSCULAR HGB CONC 33.6 g/dL (33.0-35.0); MEAN CORPUSCULAR VOLUME 94.5 fL (80.0-100.0); MEAN PLATELET VOLUME 10.9 fL (7.4-11.0); MONOCYTES # (AUTO) 1.8 x10^3/uL (0.3-0.8); MONOCYTES % (AUTO) 8.2 % (0.0-13.0); NEUTROPHILS % (AUTO) 80.7 % (42.0-75.0); PLATELET COUNT 432 X10^3/uL (150.0-450.0); RED BLOOD COUNT 3.43 X10^6/uL (4.7-6.0); RED CELL DISTRIBUTION WIDTH 13.2 % (11.6-16.5); WHITE BLOOD COUNT 22.4 X10^3/uL (3.6-10.0)
[2017-09-17 23:56] LABS: ALANINE AMINOTRANSFERASE 25 Units/L (12-78); ALBUMIN 3.4 g/dL (3.4-5.0); ALKALINE PHOSPHATASE 55 Units/L (46-116); ASPARTATE AMINO TRANSFERASE 12 Units/L (15-37); BLOOD UREA NITROGEN 87 mg/dL (7-18); CARBON DIOXIDE 38.5 mmol/L (21-32); CHLORIDE 97 mmol/L (98-107); COR NA(FOR HYPERGLY) 143 mmol/L (136-145); CREATININE 2.51 mg/dL (0.70-1.30); SODIUM 142 mmol/L (136-145); TOTAL PROTEIN 8.5 g/dL (6.4-8.2); eGFR NON BLACK RACES 28 (>60)
[2017-09-18 00:02] LABS: CALCIUM 16.8 mg/dL (8.5-10.1)
[2017-09-18] MEDS ORDERED: K-RIDER 10 MEQ/NS 100 ML 10 MEQ/100 ML BAG IV PRN (00:03)
[2017-09-18] MEDS ORDERED: POTASSIUM CHL 60 MEQ/NS 0.45% 500 ML IV PRN (00:03)
[2017-09-18] MEDS ORDERED: POTASSIUM CHL 40 MEQ/NS 0.45% 500 ML IV PRN (00:03)
[2017-09-18] MEDS ORDERED: K-LYTE EFFERVESCENT PO PRN (00:03)
[2017-09-18 00:14] LABS: BAND NEUTROPHILS % 1 % (0-10); PLATELET MORPHOLOGY COMMENT NORMAL (NORMAL)
[2017-09-18] MEDS ORDERED: NS IV ONE (00:15)
[2017-09-18] MEDS ORDERED: VANCOMYCIN HCL IV ONE (00:15)
[2017-09-18 00:17] LABS: ERYTHROCYTE SEDIMENTATION RATE 87 MM/HOUR (0-15)
[2017-09-18] MEDS ORDERED: ZOSYN VIAL 3.375 GRAMS 3.375 G in NS 100 ML IV + SPIKE MINIBAG* 100 ML IV ONE (01:00)
[2017-09-18] MEDS ORDERED: NS 250 ML IV 250 ML IV ONE (01:06)
[2017-09-18 05:25] LABS: BASOPHILS # (AUTO) 0.3 X10^3/uL (0.0-0.1); BASOPHILS % (AUTO) 1.1 % (0.2-1.0); EOSINOPHILS # (AUTO) 0.9 x10^3/uL (0.0-0.2); EOSINOPHILS % (AUTO) 3.3 % (0.9-2.9); HEMATOCRIT 32.3 % (42.0-54.0); HEMOGLOBIN 10.8 g/dL (13.5-18.0); LYMPHOCYTES # (AUTO) 1.9 X10^3/uL (1.3-2.9); LYMPHOCYTES % (AUTO) 7.4 % (21.0-51.0); MEAN CORPUSCULAR HEMOGLOBIN 31.3 pg (27.0-34.0); MEAN CORPUSCULAR HGB CONC 33.4 g/dL (33.0-35.0); MEAN CORPUSCULAR VOLUME 93.9 fL (80.0-100.0); MEAN PLATELET VOLUME 10.4 fL (7.4-11.0); MONOCYTES # (AUTO) 2.6 x10^3/uL (0.3-0.8); MONOCYTES % (AUTO) 10.1 % (0.0-13.0); NEUTROPHILS % (AUTO) 78.1 % (42.0-75.0); PLATELET COUNT 414 X10^3/uL (150.0-450.0); RED BLOOD COUNT 3.44 X10^6/uL (4.7-6.0); RED CELL DISTRIBUTION WIDTH 13.1 % (11.6-16.5); WHITE BLOOD COUNT 25.6 X10^3/uL (3.6-10.0)
[2017-09-18 05:42] LABS: ALBUMIN 3.2 g/dL (3.4-5.0); CARBON DIOXIDE 36.9 mmol/L (21-32); CREATININE 2.38 mg/dL (0.70-1.30); TOTAL PROTEIN 8.2 g/dL (6.4-8.2)
[2017-09-18] MEDS: ZOSYN VIAL 3.375 GRAMS 3.375 G in NS 100 ML IV + SPIKE MINIBAG* 100 ML IV SCH ×3 (05:50→21:10)
[2017-09-18 06:04] LABS: CALCIUM 15.8 mg/dL (8.5-10.1); COR CA(FOR HYPOALB) 16.4 mg/dL (8.5-10.1)
[2017-09-18 06:12] LABS: BAND NEUTROPHILS % 3 % (0-10); PLATELET MORPHOLOGY COMMENT NORMAL (NORMAL)
[2017-09-18] MEDS: KLONOPIN TAB 1 MG PO SCH ×3 (07:15→21:10)
[2017-09-18] MEDS: VANCOMYCIN HCL 500 MG VIAL 750 MG in D5W 250 ML IV 250 ML IV SCH (09:12)
[2017-09-18] MEDS: NICOTINE PATCH TD SCH (09:46)
[2017-09-18] MEDS: PROTONIX INJ 40 MG VIAL IVP SCH ×2 (09:47→21:10)
--- NOTE | 2017-09-18 11:05 | DR.H&P ---
H&P - History & Physical for Day of: H&P Date: 09/17/17 - Chief Complaint Chief Complaint: TRACHEOSTOMY COMPLICATIONS - History of Present Illness History of Present Illness: IS A 62 YEAR OLD PATIENT OF OURS WHO PRESENTED TO THE HOSPITAL A DIRECT ADMISSION. PATIENTS SIGNIFICANT OTHER STATED, I was changing out inner cannula on trach this morning and noticed that his trach was crooked. I went to try and straighten it and it started bleeding. It bled alot before it stopped. 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 ON EXAMINATION, THERE IS SWELLING NOTED TO NECK WITH WHAT APPEARS TO BE AN ABSCESS WITH PURULENT DRAINAGE THAT WAS NOT PRESENT ON HIS LAST ADMISSION. SHE REPORTS THAT PATIENT HAS HAD FEVER AT HOME AND DISCOMFORT TO AREA OF TRACH. ON ARRIVAL, VITALS WERE 98.3-88-20-96%- 145/68. LABS WERE OBTAINED. ABNORMAL LAB VALUES INCLUDE THE FOLLOWING: WBC 22.4 , RBC 3.43, HGB 10.9, HCT 32.5, POTASSIUM 2.8, CHLORIDE 97, CARBON DIOXIDE 38.5 , BUN 87, CREATININE 2.51, GLUCOSE 137, CALCIUM 16.8, AST 12, CRP 102.30, TOTAL PROTEIN 8.5, GLOBULIN 5.1. HE WAS STARTED ON NORMAL SALINE AT 75ML/HR, VANCOMYCIN 750MG IV DAILY, AND ZOSYN 3.375GM IV TID. THE POTASSIUM PROTOCOL WAS STARTED WELL MORPHIN 2MG IV Q2H PRN PAIN AND ATIVAN 1MG IV Q2H PRN AGITATION. WE WILL CONSULT IN THE MORNING FOR POSSIBLE I&D. OTHERWISE , WE WILL FOLLOW UP WITH AM LABS AND CONTINUE TO MONITOR PATIENT. - Past Surgical History Surgical History: Tonsillectomy - Family History Family Medical History: Cancer, Hypertension - Social History Does patient currently use any type of tobacco product: Yes (Nicotine Patch) Have you used tobacco products in the last 12 months: Yes Type of Tobacco Use: Cigarettes How many years tobacco product used: 40 Does any household member use tobacco: No Alcohol Use: Heavy, DAILY Drug Use: None - Medications Home Medications: No Known Drug Allergies Allergy (Verified 08/28/17 14:36) CONTINUE taking the following medications nicotine 21 mg TOPICAL DAILY 09/18/17 [History] pantoprazole [Protonix] 40 mg PO BID 09/18/17 [History] - Review of Systems Constitutional: Fever, Weakness Eyes: No Symptoms Reported ENT: Throat Pain, Throat Swelling, Other (BLEEDING FROM TRACHEOSTOMY ) Respiratory: Shortness of Breath Cardiovascular: No Symptoms Reported Gastrointestinal: No Symptoms Reported Genitourinary: No Symptoms Reported Musculoskeletal: No Symptoms Reported Skin: No Symptoms Reported Neurological: Weakness - Physical Exam Vital Signs: Temperature 97.7 F Pulse Rate [Right Radial] 78 Respiratory Rate 20 Blood Pressure [Left Arm] 135/63 Blood Pressure [Right Arm] 135/63 Blood Pressure 135/63 O2 Sat by Pulse Oximetry 95 Oriented: Normal Eyes: Normal Ear: Normal Nose: Normal Throat: Other (SWELLING, PURULENT DRAINAGE ) Respiratory: Diminished Throughout Cardiovascular: Normal. 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
[2017-09-18] MEDS ORDERED: SALINE 0.9% 3 ML NEB TX ONE ×2 (12:08→14:37)
[2017-09-18] MEDS: NS 1000 ML 1,000 ML IV SCH (13:49)
[2017-09-18] MEDS: ATIVAN INJ 2 MG VIAL IVP PRN (18:49)
[2017-09-18] MEDS: MORPHINE SULFATE INJ 2 MG INJ IVP PRN (18:52)
[2017-09-19] MEDS: MORPHINE SULFATE INJ 2 MG INJ IVP PRN ×5 (00:41→22:55)
[2017-09-19] MEDS: ATIVAN INJ 2 MG VIAL IVP PRN ×5 (00:42→23:02)
[2017-09-19] MEDS: NS 1000 ML 1,000 ML IV SCH ×2 (05:09→17:41)
[2017-09-19] MEDS: ZOSYN VIAL 3.375 GRAMS 3.375 G in NS 100 ML IV + SPIKE MINIBAG* 100 ML IV SCH ×2 (05:09→14:40)
[2017-09-19] MEDS: KLONOPIN TAB 1 MG PO SCH ×4 (06:19→21:30)
[2017-09-19 06:37] LABS: BASOPHILS # (AUTO) 0.1 X10^3/uL (0.0-0.1); BASOPHILS % (AUTO) 0.5 % (0.2-1.0); EOSINOPHILS # (AUTO) 0.6 x10^3/uL (0.0-0.2); EOSINOPHILS % (AUTO) 2.1 % (0.9-2.9); HEMATOCRIT 29.3 % (42.0-54.0); LYMPHOCYTES # (AUTO) 1.2 X10^3/uL (1.3-2.9); LYMPHOCYTES % (AUTO) 4.1 % (21.0-51.0); MEAN CORPUSCULAR HEMOGLOBIN 32.1 pg (27.0-34.0); MEAN CORPUSCULAR VOLUME 94.4 fL (80.0-100.0); MEAN PLATELET VOLUME 10.3 fL (7.4-11.0); MONOCYTES # (AUTO) 2.4 x10^3/uL (0.3-0.8); MONOCYTES % (AUTO) 8.5 % (0.0-13.0); NEUTROPHILS % (AUTO) 84.8 % (42.0-75.0); PLATELET COUNT 369 X10^3/uL (150.0-450.0); RED CELL DISTRIBUTION WIDTH 13.2 % (11.6-16.5); WHITE BLOOD COUNT 28.3 X10^3/uL (3.6-10.0)
[2017-09-19 06:46] LABS: ALBUMIN 2.8 g/dL (3.4-5.0); CARBON DIOXIDE 37.2 mmol/L (21-32); CREATININE 3.02 mg/dL (0.70-1.30); TOTAL PROTEIN 7.5 g/dL (6.4-8.2)
[2017-09-19 07:01] LABS: BAND NEUTROPHILS % 1 % (0-10); PLATELET MORPHOLOGY COMMENT NORMAL (NORMAL)
[2017-09-19 07:28] LABS: COR CA(FOR HYPOALB) 17.5 mg/dL (8.5-10.1)
[2017-09-19 07:30] LABS: CALCIUM 16.5 mg/dL (8.5-10.1)
[2017-09-19] MEDS: PROTONIX INJ 40 MG VIAL IVP SCH ×2 (09:29→21:30)
[2017-09-19] MEDS: VANCOMYCIN HCL 500 MG VIAL 750 MG in D5W 250 ML IV 250 ML IV SCH (09:30)
[2017-09-19] MEDS: NICOTINE PATCH TD SCH (09:39)
[2017-09-19 11:26] VITALS: BMI 15.9
[2017-09-20] MEDS: ATIVAN INJ 2 MG VIAL IVP PRN (02:39)
[2017-09-20] MEDS: KLONOPIN TAB 1 MG PO SCH ×3 (06:00→21:44)
[2017-09-20] MEDS: ZOSYN VIAL 3.375 GRAMS 3.375 G in NS 100 ML IV + SPIKE MINIBAG* 100 ML IV SCH ×3 (06:00→21:43)
[2017-09-20 06:11] LABS: BASOPHILS # (AUTO) 0.2 X10^3/uL (0.0-0.1); BASOPHILS % (AUTO) 0.6 % (0.2-1.0); EOSINOPHILS # (AUTO) 2.2 x10^3/uL (0.0-0.2); EOSINOPHILS % (AUTO) 8.1 % (0.9-2.9); HEMATOCRIT 30.3 % (42.0-54.0); HEMOGLOBIN 10.2 g/dL (13.5-18.0); LYMPHOCYTES # (AUTO) 1.6 X10^3/uL (1.3-2.9); MEAN CORPUSCULAR HGB CONC 33.6 g/dL (33.0-35.0); MEAN CORPUSCULAR VOLUME 95.4 fL (80.0-100.0); MEAN PLATELET VOLUME 10.2 fL (7.4-11.0); MONOCYTES # (AUTO) 1.9 x10^3/uL (0.3-0.8); MONOCYTES % (AUTO) 6.9 % (0.0-13.0); NEUTROPHILS % (AUTO) 78.4 % (42.0-75.0); PLATELET COUNT 373 X10^3/uL (150.0-450.0); RED BLOOD COUNT 3.17 X10^6/uL (4.7-6.0); RED CELL DISTRIBUTION WIDTH 13.1 % (11.6-16.5); WHITE BLOOD COUNT 26.8 X10^3/uL (3.6-10.0)
[2017-09-20 06:40] LABS: ALBUMIN 2.6 g/dL (3.4-5.0); CARBON DIOXIDE 36.1 mmol/L (21-32); CREATININE 3.66 mg/dL (0.70-1.30); TOTAL PROTEIN 7.5 g/dL (6.4-8.2)
[2017-09-20 06:52] LABS: CALCIUM 16.4 mg/dL (8.5-10.1); COR CA(FOR HYPOALB) 17.5 mg/dL (8.5-10.1)
[2017-09-20 06:59] LABS: BAND NEUTROPHILS % 1 % (0-10)
[2017-09-20 07:00] LABS: PLATELET MORPHOLOGY COMMENT NORMAL (NORMAL)
--- NOTE | 2017-09-20 08:12 | PCM.PROG ---
Progress Note - Progress Note for Day of Date of Exam: 09/18/17 - Subjective Subjective: WAS ADMITTED FOR COMPLICATIONS AND A POSSIBLE ABSCESS SURROUNDING HIS TRACHEOSTOMY. TODAY, HE IS LYING IN BED WITH EYES CLOSED ON MORNING ROUNDS. HE AWAKENS TO VERBAL STIMULI. FAMILY REPORTS THAT PATIENT HAS BEEN AGITATED, CONFUSED, AND MOANING OUT IN PAIN THROGHOUT THE NIGHT. STAFF REPORTS THAT WHEN CHANGING AND CLEANING HIS TRACH, HE CONTINUES WITH PURULENT AND BLOODY DRAINAGE. THEY REPORT REMOVING LARGE BLOOD CLOTS WHEN TRACH IS BEING CLEANED. HAS BEEN CONSULTED AND WILL SEE PATIENT TODAY. HIS VITALS THIS MORNING ARE 97.7-78-20-95%-135/63. LABS WERE OBTAINED. ABNORMAL LABS INCLUDE THE FOLLOWING: WBC INCREASED FROM 22.4 TO 25.6, RBC 3.44, HGB 10.8, HCT 32.3, POTASSIUM 3.3, CARBON DIOXIDE 36.9, BUN 82, CREATININE 2.38, GLUCOSE 111, CALCIUM 15.8, AST 14, ALBUMIN 3.2. TODAY, WE WILL CONTINUE WITH TRACH CARE, IV ANTIBIOTICS, IV HYDRATION, AND CURRENT PLAN OF CARE. OTHERWISE, WE WILL FOLLOW UP WITH AM LABS AND CONTINUE TO MONITOR PATIENT. - Past Medical Family Social History Past Med/Fam/Surg Hx: No changes since H&P Allergies: Allergies No Known Drug Allergies Allergy (Verified 08/28/17 14:36) - Review of Systems ROS: No change since H&P - Vital Signs and I&O's Vital Signs: Temperature 97 F Pulse Rate [Right Radial] 81 Respiratory Rate 20 Blood Pressure [Left Arm] 137/61 Blood Pressure [Right Arm] 128/61 Blood Pressure 135/63 O2 Sat by Pulse Oximetry 95 Intake and Output: Intake & Output 09/17/17 09/18/17 09/19/17 09/20/17 11:59 11:59 11:59 11:59 Intake Total 645 / 645 750 / 750 510 / 510 Output Total 125 / 125 Balance 645 / 645 750 / 750 385 / 385 - Physical Exam Oriented: Person Eyes: Normal Ear: Normal Nose: Normal Throat: Other (SWELLING, PURULENT DRAINAGE ) Respiratory: Diminished Cardiovascular: Normal. negative: S3, S4, Murmur, Edema : Normal Auscultation: Bowel Sounds: Normal Palpation: Normal Tenderness: Diffuse, Mild Skin: Decreased Turgur Musculoskeletal: Instability Psychiatric: Agitation Mood Description: Anxious Affect: Anxious Speech Pattern: Trach(not ventilated) - Laboratory and Diagnostics Result Diagrams: 09/20/17 05:55 09/20/17 05:55 Labs: 09/18/17 10:31 Trachea Gram Stain - Final 09/18/17 10:31 Trachea Wound Culture - Final 09/17/17 23:35 Blood Blood Culture - Preliminary 09/17/17 23:06 Blood Blood Culture - Preliminary Laboratory WBC 26.8 X10^3/uL (3.6-10.0) H 09/20/17 05:55 RBC 3.17 X10^6/uL (4.7-6.0) L 09/20/17 05:55 Hgb 10.2 g/dL (13.5-18.0) L 09/20/17 05:55 Hct 30.3 % (42.0-54.0) L 09/20/17 05:55 MCV 95.4 fL (80.0-100.0) 09/20/17 05:55 MCH 32.0 pg (27.0-34.0) 09/20/17 05:55 MCHC 33.6 g/dL (33.0-35.0) 09/20/17 05:55 RDW 13.1 % (11.6-16.5) 09/20/17 05:55 Plt Count 373 X10^3/uL (150.0-450.0) 09/20/17 05:55 Plt Count Comment Adequate (ADEQUATE) 09/20/17 05:55 MPV 10.2 fL (7.4-11.0) 09/20/17 05:55 Neut % (Auto) 78.4 % (42.0-75.0) H 09/20/17 05:55 Lymph % (Auto) 6.0 % (21.0-51.0) L 09/20/17 05:55 [place] % (Auto) 6.9 % (0.0-13.0) 09/20/17 05:55 Eos % (Auto) 8.1 % (0.9-2.9) H 09/20/17 05:55 Baso % (Auto) 0.6 % (0.2-1.0) 09/20/17 05:55 Neut # (Auto) 21.0 x10^3/uL (2.2-4.8) H 09/20/17 05:55 Lymph # (Auto) 1.6 X10^3/uL (1.3-2.9) 09/20/17 05:55 [place] # (Auto) 1.9 x10^3/uL (0.3-0.8) H 09/20/17 05:55 Eos # (Auto) 2.2 x10^3/uL (0.0-0.2) H 09/20/17 05:55 Baso # (Auto) 0.2 X10^3/uL (0.0-0.1) H 09/20/17 05:55 Absolute Nucleated RBC 0.0 /100WBC 09/20/17 05:55 Total Counted 100 09/20/17 05:55 Neutrophils % (Manual) 86 % (39-76) H 09/20/17 05:55 Band Neutrophils % 1 % (0-10) 09/20/17 05:55 Lymphocytes % (Manual) 3 % (13-43) L 09/20/17 05:55 Monocytes % (Manual) 7 % (4-9) 09/20/17 05:55 Eosinophils % (Manual) 3 % (0-6) 09/20/17 05:55 Plt Morphology Comment Normal (NORMAL) 09/20/17 05:55 RBC Morphology Normal (NORMAL) 09/20/17 05:55 ESR 87 MM/HOUR (0-15) H 09/17/17 23:06 Sodium 145 mmol/L (136-145) 09/20/17 05:55 Corrected Sodium 145 mmol/L (136-145) 09/20/17 05:55 Potassium 3.1 mmol/L (3.5-5.1) L 09/20/17 05:55 Chloride 102 mmol/L (98-107) 09/20/17 05:55 Carbon Dioxide 36.1 mmol/L (21-32) H 09/20/17 05:55 BUN 83 mg/dL (7-18) H 09/20/17 05:55 Creatinine 3.66 mg/dL (0.70-1.30) H 09/20/17 05:55 Est GFR (MDRD) Af Amer 22 (>60) L 09/20/17 05:55 Est GFR (MDRD) Non-Af 18 (>60) L 09/20/17 05:55 Glucose 112 mg/dL (65-99) H 09/20/17 05:55 Calcium 16.4 mg/dL (8.5-10.1) H* 09/20/17 05:55 Corrected Calcium 17.5 mg/dL (8.5-10.1) H 09/20/17 05:55 Magnesium 1.7 mg/dL (1.7-2.9) 09/17/17 23:06 Total Bilirubin 0.40 mg/dL (0.2-1.0) 09/20/17 05:55 AST 15 Units/L (15-37) 09/20/17 05:55 ALT 21 Units/L (12-78) 09/20/17 05:55 Alkaline Phosphatase 50 Units/L (46-116) 09/20/17 05:55 C-Reactive Protein 102.30 mg/L (0-3.0) H 09/17/17 23:06 Total Protein 7.5 g/dL (6.4-8.2) 09/20/17 05:55 Albumin 2.6 g/dL (3.4-5.0) L 09/20/17 05:55 Globulin 4.9 g/dL (2.5-4.5) H 09/20/17 05:55 Albumin/Globulin Ratio 0.5 Ratio (1.1-2.1) L 09/20/17 05:55 - Plan (1) Tracheostomy infection Status: Acute Plan: ADMIT, IV ANTIBIOTICS, PAIN CONTROL, CONSULT , CONTINUE TO MONITOR (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
--- NOTE | 2017-09-20 08:17 | PCM.PROG ---
Progress Note - Progress Note for Day of Date of Exam: 09/19/17 - Subjective Subjective: WAS ADMITTED FOR COMPLICATIONS AND A POSSIBLE ABSCESS SURROUNDING HIS TRACHEOSTOMY. TODAY, HE IS LYING IN BED WITH EYES CLOSED ON MORNING ROUNDS. HE IS DIFFICULT TO AROUSE. FAMILY REPORTS THAT PATIENT HAS CONTINUED WITH AGITATION, CONFUSION, AND PAIN THROGHOUT THE NIGHT. THEY REPORT THAT HE HAD A SYNCOPAL EPISODE WHILE AMBULATING TO THE BATHROOM LAST NIGHT. STAFF REPORTS THAT WHEN CHANGING AND CLEANING HIS TRACH, HE CONTINUES WITH LARGE BLOOD CLOTS THAT ARE REMOVED, FOLLOWED B COPIOUS AMOUNTS OF BLEEDING. CONSULTED WITH PATIENT AND DOES NOT FEEL LIKE AN I&D IS NEEDED AT THIS TIME. HIS VITALS THIS MORNING ARE 97.7-78-18-98%-139/65. LABS WERE OBTAINED. ABNORMAL LABS INCLUDE THE FOLLOWING: WBC INCREASED FROM 25.6 TO 28.3, RBC 3.10, HGB 10.0, HCT 29.3, POTASSIUM 3.2, CARBON DIOXIDE 37.2, BUN 81, CREATININE 3.02, GLUCOSE 118, CALCIUM 16.5, ALBUMIN 2.8. WOUND CULTURES FROM TRACH ARE PENDING. WE DISCUSSED PATIENTS END OF LIFE WISHES WITH HIS FAMILY. PATIENTS SIGNIFICANT OTHER WISHES TO DISCUSS FURTHER WITH PATIENTS DAUGHTER. TODAY, WE WILL CONTINUE WITH TRACH CARE, IV ANTIBIOTICS, IV HYDRATION, AND CURRENT PLAN OF CARE. OTHERWISE, WE WILL FOLLOW UP WITH AM LABS AND CONTINUE TO MONITOR PATIENT. - Past Medical Family Social History Past Med/Fam/Surg Hx: No changes since H&P Allergies: Allergies No Known Drug Allergies Allergy (Verified 08/28/17 14:36) - Review of Systems ROS: No change since H&P - Vital Signs and I&O's Vital Signs: Temperature 97 F Pulse Rate [Right Radial] 81 Respiratory Rate 20 Blood Pressure [Left Arm] 137/61 Blood Pressure [Right Arm] 128/61 Blood Pressure 135/63 O2 Sat by Pulse Oximetry 95 Intake and Output: Intake & Output 09/17/17 09/18/17 09/19/17 09/20/17 11:59 11:59 11:59 11:59 Intake Total 645 / 645 750 / 750 510 / 510 Output Total 125 / 125 Balance 645 / 645 750 / 750 385 / 385 - Physical Exam Oriented: Person Eyes: Normal Ear: Normal Nose: Normal Throat: Other (SWELLING, PURULENT DRAINAGE ) Respiratory: Diminished Cardiovascular: Normal. negative: S3, S4, Murmur, Edema : Normal Auscultation: Bowel Sounds: Normal Tenderness: Diffuse, Mild Skin: Decreased Turgur Musculoskeletal: Instability Psychiatric: Agitation Mood Description: Anxious Affect: Anxious Speech Pattern: Trach(not ventilated) - Laboratory and Diagnostics Result Diagrams: 09/20/17 05:55 09/20/17 05:55 Labs: 09/18/17 10:31 Trachea Gram Stain - Final 09/18/17 10:31 Trachea Wound Culture - Final 09/17/17 23:35 Blood Blood Culture - Preliminary 09/17/17 23:06 Blood Blood Culture - Preliminary Laboratory WBC 26.8 X10^3/uL (3.6-10.0) H 09/20/17 05:55 RBC 3.17 X10^6/uL (4.7-6.0) L 09/20/17 05:55 Hgb 10.2 g/dL (13.5-18.0) L 09/20/17 05:55 Hct 30.3 % (42.0-54.0) L 09/20/17 05:55 MCV 95.4 fL (80.0-100.0) 09/20/17 05:55 MCH 32.0 pg (27.0-34.0) 09/20/17 05:55 MCHC 33.6 g/dL (33.0-35.0) 09/20/17 05:55 RDW 13.1 % (11.6-16.5) 09/20/17 05:55 Plt Count 373 X10^3/uL (150.0-450.0) 09/20/17 05:55 Plt Count Comment Adequate (ADEQUATE) 09/20/17 05:55 MPV 10.2 fL (7.4-11.0) 09/20/17 05:55 Neut % (Auto) 78.4 % (42.0-75.0) H 09/20/17 05:55 Lymph % (Auto) 6.0 % (21.0-51.0) L 09/20/17 05:55 [place] % (Auto) 6.9 % (0.0-13.0) 09/20/17 05:55 Eos % (Auto) 8.1 % (0.9-2.9) H 09/20/17 05:55 Baso % (Auto) 0.6 % (0.2-1.0) 09/20/17 05:55 Neut # (Auto) 21.0 x10^3/uL (2.2-4.8) H 09/20/17 05:55 Lymph # (Auto) 1.6 X10^3/uL (1.3-2.9) 09/20/17 05:55 [place] # (Auto) 1.9 x10^3/uL (0.3-0.8) H 09/20/17 05:55 Eos # (Auto) 2.2 x10^3/uL (0.0-0.2) H 09/20/17 05:55 Baso # (Auto) 0.2 X10^3/uL (0.0-0.1) H 09/20/17 05:55 Absolute Nucleated RBC 0.0 /100WBC 09/20/17 05:55 Total Counted 100 09/20/17 05:55 Neutrophils % (Manual) 86 % (39-76) H 09/20/17 05:55 Band Neutrophils % 1 % (0-10) 09/20/17 05:55 Lymphocytes % (Manual) 3 % (13-43) L 09/20/17 05:55 Monocytes % (Manual) 7 % (4-9) 09/20/17 05:55 Eosinophils % (Manual) 3 % (0-6) 09/20/17 05:55 Plt Morphology Comment Normal (NORMAL) 09/20/17 05:55 RBC Morphology Normal (NORMAL) 09/20/17 05:55 ESR 87 MM/HOUR (0-15) H 09/17/17 23:06 Sodium 145 mmol/L (136-145) 09/20/17 05:55 Corrected Sodium 145 mmol/L (136-145) 09/20/17 05:55 Potassium 3.1 mmol/L (3.5-5.1) L 09/20/17 05:55 Chloride 102 mmol/L (98-107) 09/20/17 05:55 Carbon Dioxide 36.1 mmol/L (21-32) H 09/20/17 05:55 BUN 83 mg/dL (7-18) H 09/20/17 05:55 Creatinine 3.66 mg/dL (0.70-1.30) H 09/20/17 05:55 Est GFR (MDRD) Af Amer 22 (>60) L 09/20/17 05:55 Est GFR (MDRD) Non-Af 18 (>60) L 09/20/17 05:55 Glucose 112 mg/dL (65-99) H 09/20/17 05:55 Calcium 16.4 mg/dL (8.5-10.1) H* 09/20/17 05:55 Corrected Calcium 17.5 mg/dL (8.5-10.1) H 09/20/17 05:55 Magnesium 1.7 mg/dL (1.7-2.9) 09/17/17 23:06 Total Bilirubin 0.40 mg/dL (0.2-1.0) 09/20/17 05:55 AST 15 Units/L (15-37) 09/20/17 05:55 ALT 21 Units/L (12-78) 09/20/17 05:55 Alkaline Phosphatase 50 Units/L (46-116) 09/20/17 05:55 C-Reactive Protein 102.30 mg/L (0-3.0) H 09/17/17 23:06 Total Protein 7.5 g/dL (6.4-8.2) 09/20/17 05:55 Albumin 2.6 g/dL (3.4-5.0) L 09/20/17 05:55 Globulin 4.9 g/dL (2.5-4.5) H 09/20/17 05:55 Albumin/Globulin Ratio 0.5 Ratio (1.1-2.1) L 09/20/17 05:55 - Plan (1) Tracheostomy infection Status: Acute Plan: ADMIT, IV ANTIBIOTICS, PAIN CONTROL, CONSULT , CONTINUE TO MONITOR (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
[2017-09-20] MEDS: PROTONIX INJ 40 MG VIAL IVP SCH ×2 (09:58→21:43)
[2017-09-20] MEDS: VANCOMYCIN HCL 500 MG VIAL 750 MG in D5W 250 ML IV 250 ML IV SCH (09:58)
[2017-09-20] MEDS: NICOTINE PATCH TD SCH (09:58)
[2017-09-20] MEDS: POTASSIUM CHLORIDE LIQ 20 MEQ UDC PO PRN (09:59)
--- NOTE | 2017-09-20 15:13 | PCM.PROG ---
Progress Note - Progress Note for Day of Date of Exam: 09/20/17 - Subjective Subjective: WAS ADMITTED FOR COMPLICATIONS AND A POSSIBLE ABSCESS SURROUNDING HIS TRACHEOSTOMY. TODAY, HE IS LYING IN BED WITH EYES CLOSED ON MORNING ROUNDS. HE CONTINUES TO BE DIFFICULT TO AROUSE, HOWEVER, HE DOES RESPOND TO PAINFUL STIMULI. FAMILY REPORTS THAT PATIENT HAS CONTINUED WITH AGITATION, CONFUSION, AND PAIN THROGHOUT THE NIGHT. STAFF REPORTS THAT WHEN CHANGING AND CLEANING HIS TRACH, HE CONTINUES WITH LARGE BLOOD CLOTS THAT ARE REMOVED, FOLLOWED BY COPIOUS AMOUNTS OF BLEEDING. CONSULTED WITH PATIENT AND DOES NOT FEEL LIKE AN I&D IS NEEDED AT THIS TIME. HIS VITALS THIS MORNING ARE 98.0-94-20-95%-165/69. LABS WERE OBTAINED. ABNORMAL LABS INCLUDE THE FOLLOWING: WBC DECREASED FROM 28.3 TO 26.8, RBC 3.17, HGB 10.2, HCT 30.3, POTASSIUM 3.1, CARBON DIOXIDE 36.1, BUN 83, CREATININE 3.66, GLUCOSE 112, CALCIUM 16.4, ALBUMIN 2.6. WOUND CULTURES REPORT GROWTH OF COAGULASE NEGATIVE STAPH. TODAY, WE WILL CONTINUE WITH TRACH CARE, IV ANTIBIOTICS, IV HYDRATION, AND CURRENT PLAN OF CARE. WE WILL START A FENTANYL 25MG/HR TD PATCH. OTHERWISE, WE WILL FOLLOW UP WITH AM LABS AND CONTINUE TO MONITOR PATIENT. - Past Medical Family Social History Past Med/Fam/Surg Hx: No changes since H&P Allergies: Allergies No Known Drug Allergies Allergy (Verified 08/28/17 14:36) - Review of Systems ROS: No change since H&P - Vital Signs and I&O's Vital Signs: Temperature 97.4 F Pulse Rate [Right Radial] 85 Respiratory Rate 18 Blood Pressure [Left Arm] 165/69 Blood Pressure [Right Arm] 139/71 Blood Pressure 135/63 O2 Sat by Pulse Oximetry 96 Intake and Output: Intake & Output 09/18/17 09/19/17 09/20/17 09/21/17 11:59 11:59 11:59 11:59 Intake Total 645 / 645 750 / 750 510 / 510 Output Total 125 / 125 Balance 645 / 645 750 / 750 385 / 385 - Physical Exam Oriented: Unable to test Eyes: Normal Ear: Normal Nose: Normal Throat: Other (SWELLING, PURULENT DRAINAGE ) Respiratory: Diminished Cardiovascular: Normal. negative: S3, S4, Murmur, Edema : Normal Auscultation: Bowel Sounds: Normal Palpation: Normal Tenderness: Diffuse, Mild Skin: Decreased Turgur Musculoskeletal: Instability Psychiatric: Agitation Mood Description: Anxious Affect: Anxious Speech Pattern: Trach(not ventilated) - Laboratory and Diagnostics Result Diagrams: 09/20/17 05:55 09/20/17 05:55 Labs: 09/17/17 23:35 Blood Blood Culture - Preliminary 09/18/17 10:31 Trachea Gram Stain - Final 09/18/17 10:31 Trachea Wound Culture - Final 09/17/17 23:06 Blood Blood Culture - Preliminary Laboratory WBC 26.8 X10^3/uL (3.6-10.0) H 09/20/17 05:55 RBC 3.17 X10^6/uL (4.7-6.0) L 09/20/17 05:55 Hgb 10.2 g/dL (13.5-18.0) L 09/20/17 05:55 Hct 30.3 % (42.0-54.0) L 09/20/17 05:55 MCV 95.4 fL (80.0-100.0) 09/20/17 05:55 MCH 32.0 pg (27.0-34.0) 09/20/17 05:55 MCHC 33.6 g/dL (33.0-35.0) 09/20/17 05:55 RDW 13.1 % (11.6-16.5) 09/20/17 05:55 Plt Count 373 X10^3/uL (150.0-450.0) 09/20/17 05:55 Plt Count Comment Adequate (ADEQUATE) 09/20/17 05:55 MPV 10.2 fL (7.4-11.0) 09/20/17 05:55 Neut % (Auto) 78.4 % (42.0-75.0) H 09/20/17 05:55 Lymph % (Auto) 6.0 % (21.0-51.0) L 09/20/17 05:55 Jack % (Auto) 6.9 % (0.0-13.0) 09/20/17 05:55 Eos % (Auto) 8.1 % (0.9-2.9) H 09/20/17 05:55 Baso % (Auto) 0.6 % (0.2-1.0) 09/20/17 05:55 Neut # (Auto) 21.0 x10^3/uL (2.2-4.8) H 09/20/17 05:55 Lymph # (Auto) 1.6 X10^3/uL (1.3-2.9) 09/20/17 05:55 Jack # (Auto) 1.9 x10^3/uL (0.3-0.8) H 09/20/17 05:55 Eos # (Auto) 2.2 x10^3/uL (0.0-0.2) H 09/20/17 05:55 Baso # (Auto) 0.2 X10^3/uL (0.0-0.1) H 09/20/17 05:55 Absolute Nucleated RBC 0.0 /100WBC 09/20/17 05:55 Total Counted 100 09/20/17 05:55 Neutrophils % (Manual) 86 % (39-76) H 09/20/17 05:55 Band Neutrophils % 1 % (0-10) 09/20/17 05:55 Lymphocytes % (Manual) 3 % (13-43) L 09/20/17 05:55 Monocytes % (Manual) 7 % (4-9) 09/20/17 05:55 Eosinophils % (Manual) 3 % (0-6) 09/20/17 05:55 Plt Morphology Comment Normal (NORMAL) 09/20/17 05:55 RBC Morphology Normal (NORMAL) 09/20/17 05:55 ESR 87 MM/HOUR (0-15) H 09/17/17 23:06 Sodium 145 mmol/L (136-145) 09/20/17 05:55 Corrected Sodium 145 mmol/L (136-145) 09/20/17 05:55 Potassium 3.1 mmol/L (3.5-5.1) L 09/20/17 05:55 Chloride 102 mmol/L (98-107) 09/20/17 05:55 Carbon Dioxide 36.1 mmol/L (21-32) H 09/20/17 05:55 BUN 83 mg/dL (7-18) H 09/20/17 05:55 Creatinine 3.66 mg/dL (0.70-1.30) H 09/20/17 05:55 Est GFR (MDRD) Af Amer 22 (>60) L 09/20/17 05:55 Est GFR (MDRD) Non-Af 18 (>60) L 09/20/17 05:55 Glucose 112 mg/dL (65-99) H 09/20/17 05:55 Calcium 16.4 mg/dL (8.5-10.1) H* 09/20/17 05:55 Corrected Calcium 17.5 mg/dL (8.5-10.1) H 09/20/17 05:55 Magnesium 1.7 mg/dL (1.7-2.9) 09/17/17 23:06 Total Bilirubin 0.40 mg/dL (0.2-1.0) 09/20/17 05:55 AST 15 Units/L (15-37) 09/20/17 05:55 ALT 21 Units/L (12-78) 09/20/17 05:55 Alkaline Phosphatase 50 Units/L (46-116) 09/20/17 05:55 C-Reactive Protein 102.30 mg/L (0-3.0) H 09/17/17 23:06 Total Protein 7.5 g/dL (6.4-8.2) 09/20/17 05:55 Albumin 2.6 g/dL (3.4-5.0) L 09/20/17 05:55 Globulin 4.9 g/dL (2.5-4.5) H 09/20/17 05:55 Albumin/Globulin Ratio 0.5 Ratio (1.1-2.1) L 09/20/17 05:55 - Plan (1) Tracheostomy infection Status: Acute Plan: ADMIT, IV ANTIBIOTICS, PAIN CONTROL, CONSULT , CONTINUE TO MONITOR (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
[2017-09-20] MEDS: NS 1000 ML 1,000 ML IV SCH ×2 (22:13)
[2017-09-21] MEDS: KLONOPIN TAB 1 MG PO SCH ×2 (05:22→14:25)
[2017-09-21] MEDS: ZOSYN VIAL 3.375 GRAMS 3.375 G in NS 100 ML IV + SPIKE MINIBAG* 100 ML IV SCH (05:22)
[2017-09-21 06:28] LABS: BASOPHILS # (AUTO) 0.2 X10^3/uL (0.0-0.1); BASOPHILS % (AUTO) 0.6 % (0.2-1.0); EOSINOPHILS # (AUTO) 2.9 x10^3/uL (0.0-0.2); EOSINOPHILS % (AUTO) 9.7 % (0.9-2.9); HEMATOCRIT 29.6 % (42.0-54.0); HEMOGLOBIN 10.1 g/dL (13.5-18.0); LYMPHOCYTES # (AUTO) 1.7 X10^3/uL (1.3-2.9); LYMPHOCYTES % (AUTO) 5.9 % (21.0-51.0); MEAN CORPUSCULAR HEMOGLOBIN 32.2 pg (27.0-34.0); MEAN CORPUSCULAR VOLUME 94.7 fL (80.0-100.0); MEAN PLATELET VOLUME 10.4 fL (7.4-11.0); MONOCYTES # (AUTO) 2.2 x10^3/uL (0.3-0.8); MONOCYTES % (AUTO) 7.6 % (0.0-13.0); NEUTROPHILS # (AUTO) 22.4 x10^3/uL (2.2-4.8); NEUTROPHILS % (AUTO) 76.2 % (42.0-75.0); PLATELET COUNT 389 X10^3/uL (150.0-450.0); RED BLOOD COUNT 3.13 X10^6/uL (4.7-6.0); WHITE BLOOD COUNT 29.4 X10^3/uL (3.6-10.0)
[2017-09-21 06:35] LABS: ALBUMIN 2.5 g/dL (3.4-5.0); CARBON DIOXIDE 35.8 mmol/L (21-32); CREATININE 4.11 mg/dL (0.70-1.30); TOTAL PROTEIN 7.5 g/dL (6.4-8.2)
[2017-09-21 06:50] LABS: CALCIUM 16.8 mg/dL (8.5-10.1)
[2017-09-21 07:00] LABS: BAND NEUTROPHILS % 2 % (0-10); PLATELET MORPHOLOGY COMMENT NORMAL (NORMAL)
[2017-09-21] MEDS: NICOTINE PATCH TD SCH (08:15)
[2017-09-21] MEDS: VANCOMYCIN HCL 500 MG VIAL 750 MG in D5W 250 ML IV 250 ML IV SCH (08:16)
[2017-09-21] MEDS: PROTONIX INJ 40 MG VIAL IVP SCH (08:16)
[2017-09-21] MEDS: MORPHINE SULFATE INJ 2 MG INJ IVP PRN ×3 (08:21→17:32)
[2017-09-21] MEDS ORDERED: PHARMACY COMMENT IV NR (08:30)
[2017-09-21 08:40] LABS: CREATININE 4.41 mg/dL (0.70-1.30)
[2017-09-21 08:45] LABS: VANCOMYCIN,TROUGH 25.4 ug/mL (15-20)
[2017-09-21] MEDS ORDERED: STERILE WATER IRRIGATION IR ONE (09:23)
[2017-09-21] MEDS: POTASSIUM CHLORIDE LIQ 20 MEQ UDC PO PRN (09:46)
[2017-09-21] MEDS: VERSED 100 MG in NS 100 ML IV 80 ML IV PRN (10:53)
[2017-09-21] MEDS: MORPHINE SULFATE PCA 30 MG IVP PRN (21:00)
--- NOTE | 2017-09-21 21:43 | PCM.PROG ---
Progress Note - Progress Note for Day of Date of Exam: 09/21/17 - Subjective Subjective: WAS ADMITTED FOR COMPLICATIONS AND A POSSIBLE ABSCESS SURROUNDING HIS TRACHEOSTOMY. TODAY, HE IS LYING IN BED WITH EYES CLOSED ON MORNING ROUNDS. PATIENT ONLY RESPONDS TO PAINFUL STIMULI BY MOANING. THERE IS SIGNIFICANT SWELLING TO NECK AND SURROUNDING HIS TRACHEOSTOMY. FAMILY REPORTS THAT PATIENT HAS BEEN MOANING THROUGHOUT THE NIGHT AND APPEARS TO BE UNCOMFORTABLE AND IN PAIN. HIS VITALS THIS MORNING ARE 98.0-85-18-95%-144/68. LABS WERE OBTAINED. ABNORMAL LABS INCLUDE THE FOLLOWING: WBC INCREASED FROM 26.8 TO 29.4, RBC 3.13, HGB 10.1, HCT 29.6, SODIUM 147, POTASSIUM 3.4, CARBON DIOXIDE 35.8, BUN 88, CREATININE 4.11, GLUCOSE 115, CALCIUM 16.8, AST 14, ALBUMIN 2.5. WOUND CULTURES REPORT GROWTH OF COAGULASE NEGATIVE STAPH. WE DISCUSSED THE PATIENTS DECLINING CONDITION AND END OF LIFE CARE WITH HIS FAMILY. PATIENT WISHES THAT WE KEEP PATIENT COMFORTABLE AND OUT OF PAIN. WE ARE IN AGREEMENT WITH PLAN. TODAY, WE WILL START PALLATIVE CARE TREATMENTS. OTHERWISE, WE WILL FOLLOW UP WITH AM LABS AND CONTINUE TO MONITOR PATIENT. - Past Medical Family Social History Past Med/Fam/Surg Hx: No changes since H&P Allergies: Allergies No Known Drug Allergies Allergy (Verified 08/28/17 14:36) - Review of Systems ROS: No change since H&P - Vital Signs and I&O's Vital Signs: Temperature 97.7 F Pulse Rate [Right Radial] 89 Pulse Rate 80 Respiratory Rate 18 Blood Pressure [Left Arm] 135/64 Blood Pressure [Right Arm] 137/70 Blood Pressure 135/63 O2 Sat by Pulse Oximetry 98 Intake and Output: Intake & Output 09/19/17 09/20/17 09/21/17 09/22/17 11:59 11:59 11:59 11:59 Intake Total 750 / 750 510 / 510 1647 / 1647 5 Output Total 125 / 125 Balance 750 / 750 385 / 385 1647 / 1647 - Physical Exam Oriented: Unable to test Eyes: Normal Ear: Normal Nose: Normal Throat: Other (SWELLING) Respiratory: Diminished Cardiovascular: Normal. negative: S3, S4, Murmur, Edema : Normal Auscultation: Bowel Sounds: Normal Palpation: Normal Tenderness: Diffuse, Mild Skin: Decreased Turgur Musculoskeletal: Instability Psychiatric: Agitation Mood Description: Anxious Affect: Anxious Speech Pattern: Trach(not ventilated) - Laboratory and Diagnostics Result Diagrams: 09/21/17 05:45 09/21/17 07:50 Labs: 09/17/17 23:35 Blood Blood Culture - Preliminary 09/18/17 10:31 Trachea Gram Stain - Final 09/18/17 10:31 Trachea Wound Culture - Final 09/17/17 23:06 Blood Blood Culture - Preliminary Laboratory WBC 29.4 X10^3/uL (3.6-10.0) H 09/21/17 05:45 RBC 3.13 X10^6/uL (4.7-6.0) L 09/21/17 05:45 Hgb 10.1 g/dL (13.5-18.0) L 09/21/17 05:45 Hct 29.6 % (42.0-54.0) L 09/21/17 05:45 MCV 94.7 fL (80.0-100.0) 09/21/17 05:45 MCH 32.2 pg (27.0-34.0) 09/21/17 05:45 MCHC 34.0 g/dL (33.0-35.0) 09/21/17 05:45 RDW 13.0 % (11.6-16.5) 09/21/17 05:45 Plt Count 389 X10^3/uL (150.0-450.0) 09/21/17 05:45 Plt Count Comment Adequate (ADEQUATE) 09/21/17 05:45 MPV 10.4 fL (7.4-11.0) 09/21/17 05:45 Neut % (Auto) 76.2 % (42.0-75.0) H 09/21/17 05:45 Lymph % (Auto) 5.9 % (21.0-51.0) L 09/21/17 05:45 [place] % (Auto) 7.6 % (0.0-13.0) 09/21/17 05:45 Eos % (Auto) 9.7 % (0.9-2.9) H 09/21/17 05:45 Baso % (Auto) 0.6 % (0.2-1.0) 09/21/17 05:45 Neut # (Auto) 22.4 x10^3/uL (2.2-4.8) H 09/21/17 05:45 Lymph # (Auto) 1.7 X10^3/uL (1.3-2.9) 09/21/17 05:45 [place] # (Auto) 2.2 x10^3/uL (0.3-0.8) H 09/21/17 05:45 Eos # (Auto) 2.9 x10^3/uL (0.0-0.2) H 09/21/17 05:45 Baso # (Auto) 0.2 X10^3/uL (0.0-0.1) H 09/21/17 05:45 Absolute Nucleated RBC 0.0 /100WBC 09/21/17 05:45 Total Counted 100 09/21/17 05:45 Neutrophils % (Manual) 82 % (39-76) H 09/21/17 05:45 Band Neutrophils % 2 % (0-10) 09/21/17 05:45 Lymphocytes % (Manual) 5 % (13-43) L 09/21/17 05:45 Monocytes % (Manual) 3 % (4-9) L 09/21/17 05:45 Eosinophils % (Manual) 8 % (0-6) H 09/21/17 05:45 Plt Morphology Comment Normal (NORMAL) 09/21/17 05:45 RBC Morphology Normal (NORMAL) 09/21/17 05:45 ESR 87 MM/HOUR (0-15) H 09/17/17 23:06 Sodium 147 mmol/L (136-145) H 09/21/17 05:45 Corrected Sodium 147 mmol/L (136-145) H 09/21/17 05:45 Potassium 3.4 mmol/L (3.5-5.1) L 09/21/17 05:45 Chloride 104 mmol/L (98-107) 09/21/17 05:45 Carbon Dioxide 35.8 mmol/L (21-32) H 09/21/17 05:45 BUN 88 mg/dL (7-18) H 09/21/17 05:45 Creatinine 4.41 mg/dL (0.70-1.30) H 09/21/17 07:50 Est GFR (MDRD) Af Amer 19 (>60) L 09/21/17 05:45 Est GFR (MDRD) Non-Af 16 (>60) L 09/21/17 05:45 Glucose 115 mg/dL (65-99) H 09/21/17 05:45 Calcium 16.8 mg/dL (8.5-10.1) H* 09/21/17 05:45 Corrected Calcium 18.0 mg/dL (8.5-10.1) H 09/21/17 05:45 Magnesium 1.7 mg/dL (1.7-2.9) 09/17/17 23:06 Total Bilirubin 0.30 mg/dL (0.2-1.0) 09/21/17 05:45 AST 14 Units/L (15-37) L 09/21/17 05:45 ALT 20 Units/L (12-78) 09/21/17 05:45 Alkaline Phosphatase 53 Units/L (46-116) 09/21/17 05:45 C-Reactive Protein 102.30 mg/L (0-3.0) H 09/17/17 23:06 Total Protein 7.5 g/dL (6.4-8.2) 09/21/17 05:45 Albumin 2.5 g/dL (3.4-5.0) L 09/21/17 05:45 Globulin 5.0 g/dL (2.5-4.5) H 09/21/17 05:45 Albumin/Globulin Ratio 0.5 Ratio (1.1-2.1) L 09/21/17 05:45 Vancomycin Trough 25.4 ug/mL (15-20) H* 09/21/17 07:50 - Plan (1) Tracheostomy infection Status: Acute Plan: PAIN CONTROL, CONTINUE TO MONITOR (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 (4) Palliative care status Status: Acute
[2017-09-22] MEDS: MORPHINE SULFATE PCA 30 MG IVP PRN ×4 (03:09→22:47)
[2017-09-22] MEDS: VERSED 100 MG in NS 100 ML IV 80 ML IV PRN (09:05)
[2017-09-22] MEDS ORDERED: DURAGESIC 100 mcg/HR PATCH TD SCH (10:00)
[2017-09-23] MEDS: MORPHINE SULFATE PCA 30 MG IVP PRN ×2 (05:05→09:09)
[2017-09-23] MEDS: VERSED 100 MG in NS 100 ML IV 80 ML IV PRN (08:40)
[2017-09-23] MEDS ORDERED: DURAGESIC 100 mcg/HR PATCH TD SCH (09:43)
[2017-09-23] MEDS ORDERED: MORPHINE SULFATE PCA 30 MG IVP PRN (09:44)
[2017-09-23 11:00] VITALS: BP 46/26
--- NOTE | 2017-09-23 11:04 | PCM.PROG ---
Progress Note - Progress Note for Day of Date of Exam: 09/22/17 - Subjective Subjective: WAS ADMITTED FOR COMPLICATIONS AND A POSSIBLE ABSCESS SURROUNDING HIS TRACHEOSTOMY. HE HAS BEEN TRANSITIONED TO PALLATIVE CARE TREATMENT. TODAY, HE IS LYING IN BED WITH EYES CLOSED ON MORNING ROUNDS. THERE IS SIGNIFICANT SWELLING TO NECK AND SURROUNDING HIS TRACHEOSTOMY, WORSE TODAY THAN YESTERDAY. FAMILY REPORTS THAT PATIENT HAS BEEN GRIMACINGT THROUGHOUT THE NIGHT AND IS CONCERNED THAT HE IS IN PAIN. HIS VITALS THIS MORNING ARE 96.7-67-7 -94%TRACH COLLAR-111/59. FAMILY REQUESTED THAT LABS NOT BE DRAWN TODAY. TODAY, WE WILL MAKE SLIGHT ADJUSTMENTS HIS HIS PAIN AND SEDATION MEDICATIONS. OTHERWISE , WE WILL FOLLOW UP AND CONTINUE TO MONITOR PATIENT. - Past Medical Family Social History Past Med/Fam/Surg Hx: No changes since H&P Allergies: Allergies No Known Drug Allergies Allergy (Verified 08/28/17 14:36) - Review of Systems ROS: No change since H&P - Vital Signs and I&O's Vital Signs: Temperature 99.8 F Pulse Rate [Right Radial] 68 Pulse Rate 80 Respiratory Rate 10 Blood Pressure [Left Arm] 111/59 Blood Pressure [Right Arm] 46/26 Blood Pressure 135/63 O2 Sat by Pulse Oximetry 47 Intake and Output: Intake & Output 09/20/17 09/21/17 09/22/17 09/23/17 11:59 11:59 11:59 11:59 Intake Total 510 / 510 1647 / 1647 90 / 90 155 / 155 Output Total 125 / 125 0 / 0 Balance 385 / 385 1647 / 1647 90 / 90 155 / 155 - Physical Exam Oriented: Unable to test Eyes: Normal Ear: Normal Nose: Normal Throat: Other (SWELLING) Respiratory: Diminished Cardiovascular: Normal. negative: S3, S4, Murmur, Edema : Normal Auscultation: Bowel Sounds: Normal Palpation: Normal Tenderness: Diffuse, Mild Skin: Decreased Turgur Musculoskeletal: Instability Psychiatric: Agitation Mood Description: Anxious Affect: Anxious Speech Pattern: Trach(not ventilated) - Laboratory and Diagnostics Result Diagrams: 09/21/17 05:45 09/21/17 07:50 Labs: 09/17/17 23:35 Blood Blood Culture - Final 09/17/17 23:06 Blood Blood Culture - Final 09/18/17 10:31 Trachea Gram Stain - Final 09/18/17 10:31 Trachea Wound Culture - Final Laboratory WBC 29.4 X10^3/uL (3.6-10.0) H 09/21/17 05:45 RBC 3.13 X10^6/uL (4.7-6.0) L 09/21/17 05:45 Hgb 10.1 g/dL (13.5-18.0) L 09/21/17 05:45 Hct 29.6 % (42.0-54.0) L 09/21/17 05:45 MCV 94.7 fL (80.0-100.0) 09/21/17 05:45 MCH 32.2 pg (27.0-34.0) 09/21/17 05:45 MCHC 34.0 g/dL (33.0-35.0) 09/21/17 05:45 RDW 13.0 % (11.6-16.5) 09/21/17 05:45 Plt Count 389 X10^3/uL (150.0-450.0) 09/21/17 05:45 Plt Count Comment Adequate (ADEQUATE) 09/21/17 05:45 MPV 10.4 fL (7.4-11.0) 09/21/17 05:45 Neut % (Auto) 76.2 % (42.0-75.0) H 09/21/17 05:45 Lymph % (Auto) 5.9 % (21.0-51.0) L 09/21/17 05:45 [place] % (Auto) 7.6 % (0.0-13.0) 09/21/17 05:45 Eos % (Auto) 9.7 % (0.9-2.9) H 09/21/17 05:45 Baso % (Auto) 0.6 % (0.2-1.0) 09/21/17 05:45 Neut # (Auto) 22.4 x10^3/uL (2.2-4.8) H 09/21/17 05:45 Lymph # (Auto) 1.7 X10^3/uL (1.3-2.9) 09/21/17 05:45 [place] # (Auto) 2.2 x10^3/uL (0.3-0.8) H 09/21/17 05:45 Eos # (Auto) 2.9 x10^3/uL (0.0-0.2) H 09/21/17 05:45 Baso # (Auto) 0.2 X10^3/uL (0.0-0.1) H 09/21/17 05:45 Absolute Nucleated RBC 0.0 /100WBC 09/21/17 05:45 Total Counted 100 09/21/17 05:45 Neutrophils % (Manual) 82 % (39-76) H 09/21/17 05:45 Band Neutrophils % 2 % (0-10) 09/21/17 05:45 Lymphocytes % (Manual) 5 % (13-43) L 09/21/17 05:45 Monocytes % (Manual) 3 % (4-9) L 09/21/17 05:45 Eosinophils % (Manual) 8 % (0-6) H 09/21/17 05:45 Plt Morphology Comment Normal (NORMAL) 09/21/17 05:45 RBC Morphology Normal (NORMAL) 09/21/17 05:45 ESR 87 MM/HOUR (0-15) H 09/17/17 23:06 Sodium 147 mmol/L (136-145) H 09/21/17 05:45 Corrected Sodium 147 mmol/L (136-145) H 09/21/17 05:45 Potassium 3.4 mmol/L (3.5-5.1) L 09/21/17 05:45 Chloride 104 mmol/L (98-107) 09/21/17 05:45 Carbon Dioxide 35.8 mmol/L (21-32) H 09/21/17 05:45 BUN 88 mg/dL (7-18) H 09/21/17 05:45 Creatinine 4.41 mg/dL (0.70-1.30) H 09/21/17 07:50 Est GFR (MDRD) Af Amer 19 (>60) L 09/21/17 05:45 Est GFR (MDRD) Non-Af 16 (>60) L 09/21/17 05:45 Glucose 115 mg/dL (65-99) H 09/21/17 05:45 Calcium 16.8 mg/dL (8.5-10.1) H* 09/21/17 05:45 Corrected Calcium 18.0 mg/dL (8.5-10.1) H 09/21/17 05:45 Magnesium 1.7 mg/dL (1.7-2.9) 09/17/17 23:06 Total Bilirubin 0.30 mg/dL (0.2-1.0) 09/21/17 05:45 AST 14 Units/L (15-37) L 09/21/17 05:45 ALT 20 Units/L (12-78) 09/21/17 05:45 Alkaline Phosphatase 53 Units/L (46-116) 09/21/17 05:45 C-Reactive Protein 102.30 mg/L (0-3.0) H 09/17/17 23:06 Total Protein 7.5 g/dL (6.4-8.2) 09/21/17 05:45 Albumin 2.5 g/dL (3.4-5.0) L 09/21/17 05:45 Globulin 5.0 g/dL (2.5-4.5) H 09/21/17 05:45 Albumin/Globulin Ratio 0.5 Ratio (1.1-2.1) L 09/21/17 05:45 Vancomycin Trough 25.4 ug/mL (15-20) H* 09/21/17 07:50 - Plan (1) Tracheostomy infection Status: Acute Plan: PAIN CONTROL, CONTINUE TO MONITOR (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
--- NOTE | 2017-11-08 17:17 | DR.DECEASE ---
Form - Labs Result Diagrams: 09/21/17 05:45 09/21/17 07:50 - Hospital Course Hospital Course: DAY ONE, WAS A 62 YEAR OLD PATIENT OF OURS WHO PRESENTED TO THE HOSPITAL A DIRECT ADMISSION. PATIENTS SIGNIFICANT OTHER STATED, I was changing out inner cannula on trach this morning and noticed that his trach was crooked. I went to try and straighten it and it started bleeding. It bled alot before it stopped. 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 ON EXAMINATION, THERE WAS SWELLING NOTED TO NECK WITH WHAT APPEARED TO BE AN ABSCESS WITH PURULENT DRAINAGE THAT WAS NOT PRESENT ON HIS LAST ADMISSION. SHE REPORTED THAT PATIENT HAD FEVER AT HOME AND DISCOMFORT TO AREA OF TRACH. ON ARRIVAL, VITALS WERE 98.3-88-20-96%-145 /68. LABS WERE OBTAINED. ABNORMAL LAB VALUES INCLUDED THE FOLLOWING: WBC 22.4, RBC 3.43, HGB 10.9, HCT 32.5, POTASSIUM 2.8, CHLORIDE 97, CARBON DIOXIDE 38.5, BUN 87, CREATININE 2.51, GLUCOSE 137, CALCIUM 16.8, AST 12, CRP 102.30, TOTAL PROTEIN 8.5, GLOBULIN 5.1. HE WAS STARTED ON NORMAL SALINE AT 75ML/HR, VANCOMYCIN 750MG IV DAILY, AND ZOSYN 3.375GM IV TID. THE POTASSIUM PROTOCOL WAS STARTED WELL MORPHIN 2MG IV Q2H PRN PAIN AND ATIVAN 1MG IV Q2H PRN AGITATION. WE CONSULTED FOR POSSIBLE I&D. WE CONTINUED TO MONITOR PATIENT. DAY TWO, HE WAS LYING IN BED WITH EYES CLOSED ON MORNING ROUNDS. HE AWAKENED TO VERBAL STIMULI. FAMILY REPORTED THAT PATIENT HAD BEEN AGITATED, CONFUSED, AND MOANING OUT IN PAIN THROUGHOUT THE NIGHT. STAFF REPORTED THAT WHEN CHANGING AND CLEANING HIS TRACH, HE CONTINUED WITH PURULENT AND BLOODY DRAINAGE. THEY REPORTED REMOVING LARGE BLOOD CLOTS WHEN TRACH WAS BEING CLEANED. HIS VITALS WERE 97.7-78-20-95%-135/63. LABS WERE OBTAINED. ABNORMAL LABS INCLUDED THE FOLLOWING: WBC INCREASED FROM 22.4 TO 25.6, RBC 3.44, HGB 10.8 , HCT 32.3, POTASSIUM 3.3, CARBON DIOXIDE 36.9, BUN 82, CREATININE 2.38, GLUCOSE 111, CALCIUM 15.8, AST 14, ALBUMIN 3.2. WE CONTINUED WITH TRACH CARE, IV ANTIBIOTICS, AND IV HYDRATION. WE CONTINUED TO MONITOR PATIENT. DAY THREE, HE WAS DIFFICULT TO AROUSE. FAMILY REPORTED THAT PATIENT CONTINUED WITH AGITATION, CONFUSION, AND PAIN THROGHOUT THE NIGHT. THEY REPORTED THAT HE HAD A SYNCOPAL EPISODE WHILE AMBULATING TO THE BATHROOM LAST NIGHT. STAFF REPORTED THAT WHEN CHANGING AND CLEANING HIS TRACH, HE CONTINUED WITH LARGE BLOOD CLOTS THAT WERE REMOVED, FOLLOWED BY COPIOUS AMOUNTS OF BLEEDING. DR. GONZALEZ CONSULTED WITH PATIENT AND DID NOT FEEL LIKE AN I&D WAS NEEDED. HIS VITALS WERE 97.7-78-18-98%-139/65. LABS WERE OBTAINED. ABNORMAL LABS INCLUDED THE FOLLOWING : WBC INCREASED FROM 25.6 TO 28.3, RBC 3.10, HGB 10.0, HCT 29.3, POTASSIUM 3.2, CARBON DIOXIDE 37.2, BUN 81, CREATININE 3.02, GLUCOSE 118, CALCIUM 16.5, ALBUMIN 2.8. WOUND CULTURES FROM TRACH WERE PENDING. WE DISCUSSED PATIENTS END OF LIFE WISHES WITH HIS FAMILY. PATIENTS SIGNIFICANT OTHER WISHED TO DISCUSS FURTHER WITH PATIENTS DAUGHTER. WE CONTINUED WITH TRACH CARE, IV ANTIBIOTICS, AND IV HYDRATION. DAY FOUR, HE CONTINUED TO BE DIFFICULT TO AROUSE, HOWEVER, HE DID RESPOND TO PAINFUL STIMULI. FAMILY REPORTED THAT PATIENT CONTINUED WITH AGITATION, CONFUSION, AND PAIN THROGHOUT THE NIGHT. STAFF REPORTED THAT WHEN CHANGING AND CLEANING HIS TRACH, HE CONTINUED WITH LARGE BLOOD CLOTS THAT WERE REMOVED, FOLLOWED BY COPIOUS AMOUNTS OF BLEEDING. HIS VITALS WERE 98.0-94-20-95% -165/69. LABS WERE OBTAINED. ABNORMAL LABS INCLUDED THE FOLLOWING: WBC DECREASED FROM 28.3 TO 26.8, RBC 3.17, HGB 10.2, HCT 30.3, POTASSIUM 3.1, CARBON DIOXIDE 36.1, BUN 83, CREATININE 3.66, GLUCOSE 112, CALCIUM 16.4, ALBUMIN 2.6. WOUND CULTURES REPORTED GROWTH OF COAGULASE NEGATIVE STAPH. WE CONTINUED WITH TRACH CARE, IV ANTIBIOTICS, IV HYDRATION. WE STARTED A FENTANYL 25MG/HR TD PATCH. DAY FIVE, HE WAS LYING IN BED WITH EYES CLOSED ON MORNING ROUNDS. PATIENT ONLY RESPONDED TO PAINFUL STIMULI BY MOANING. THERE WAS SIGNIFICANT SWELLING TO NECK AND SURROUNDING HIS TRACHEOSTOMY. FAMILY REPORTED THAT PATIENT HAD BEEN MOANING THROUGHOUT THE NIGHT AND APPEARED TO BE UNCOMFORTABLE AND IN PAIN. HIS VITALS WERE 98.0-85-18-95%-144/68. LABS WERE OBTAINED. ABNORMAL LABS INCLUDED THE FOLLOWING: WBC INCREASED FROM 26.8 TO 29.4 , RBC 3.13, HGB 10.1, HCT 29.6, SODIUM 147, POTASSIUM 3.4, CARBON DIOXIDE 35.8, BUN 88, CREATININE 4.11, GLUCOSE 115, CALCIUM 16.8, AST 14, ALBUMIN 2.5. WOUND CULTURES REPORTED GROWTH OF COAGULASE NEGATIVE STAPH. WE DISCUSSED THE PATIENT S DECLINING CONDITION AND END OF LIFE CARE WITH HIS FAMILY. FAMILY REQUESTED THAT WE KEEP PATIENT COMFORTABLE AND OUT OF PAIN. WE WERE IN AGREEMENT WITH PLAN. WE STARTED PALLATIVE CARE TREATMENTS. DAY SIX, HE WAS TRANSITIONED TO PALLATIVE CARE TREATMENT THE DAY BEFORE. HE WAS LYING IN BED WITH EYES CLOSED ON MORNING ROUNDS. THERE WAS SIGNIFICANT SWELLING TO NECK AND SURROUNDING HIS TRACHEOSTOMY, WORSE THAN THE DAY PRIOR. FAMILY REPORTED THAT PATIENT HAD BEEN GRIMACING THROUGHOUT THE NIGHT AND WAS CONCERNED THAT HE WAS IN PAIN. HIS VITALS WERE 96.7-67-7-94%TRACH COLLAR-111/59. FAMILY REQUESTED THAT LABS NOT BE DRAWN. WE MADE SLIGHT ADJUSTMENTS IN HIS PAIN AND SEDATION MEDICATIONS. WE CONTINUED TO MONITOR PATIENT. DAY SEVEN, PATIENT PASSED PEACEFULLY WITH FAMILY AT BEDSIDE AT 09:[address]IDE[address] COBB PROUNOUCED PATIENT. - Expiration Expiration Date: 09/23/17 Expiration Time: 09:35 Pronounced by: Dr. 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
== END 2017-09-23 11:35 | disposition expired | DRG 206 ==
LOC: MED/SURG
PROVIDERS: ADMIT Internal Medicine; ATTEND Internal Medicine
DX: Z66 Do not resuscitate; R26.89 Other abnormalities of gait and mobility; C10.9 Malignant neoplasm of oropharynx, unspecified; B95.7 Other staphylococcus as the cause of diseases classified elsewhere; I46.9 Cardiac arrest, cause unspecified; F41.8 Other specified anxiety disorders; Z51.5 Encounter for palliative care; N17.8 Other acute kidney failure; J95.02 Infection of tracheostomy stoma; R79.82 Elevated C-reactive protein (CRP); R06.02 Shortness of breath; J95.01 Hemorrhage from tracheostomy stoma; R55 Syncope and collapse
CPT/HCPCS: 36415; 80053; 80202; 82565; 83735; 85025; 85652; 86140; 87040; 87070; 87075; 87205; 97162; 97167; A4217; A4222; C9113; G0378; J2060; J2250; J2270; J2271; J2543; J3370; J7030; J7050; J7060; J8499